=== PATIENT | male | born 1940 | race Caucasian/White ===

== ENCOUNTER 2021-05-20 10:51 | Inpatient (IN) ==
[2021-05-20] MEDS ORDERED: 0.9 % SODIUM CHLORIDE 1,000 ML IV ONE (11:01)
[2021-05-20] MEDS ORDERED: 0.9 % SODIUM CHLORIDE 250 ML IV SCH (11:15)
[2021-05-20 11:50] LABS: Basophils # (Auto) 0.05 K/mcL (0.00-0.20); Basophils % (Auto) 0.9 % (0.0-2.0); Eosinophils # (Auto) 0.07 K/mcL (0.00-0.70); Eosinophils % (Auto) 1.3 % (0.0-7.0); Hematocrit 31.1 % (41.0-55.0); Hemoglobin 9.3 g/dL (13.5-16.5); Lymphocytes # (Auto) 0.98 K/mcL (1.50-4.80); Lymphocytes % (Auto) 18.4 % (15.0-49.0); Mean Cell Volume 94.2 fL (80.0-100.0); Mean Corpuscular HGB Conc 29.9 g/dL (31.0-36.0); Mean Platelet Volume 9.6 fL (7.4-10.4); Monocytes # (Auto) 0.67 K/mcL (0.10-0.90); Monocytes % (Auto) 12.6 % (1.0-12.0); Neutrophils % (Auto) 66.8 % (38.0-78.0); Platelet Count 246 K/mcL (140-440); Red Cell Distribution Width 15.3 % (11.5-14.5); WBC 5.3 K/mcL (4.5-11.0)
[2021-05-20 12:23] LABS: ALT/SGPT 10 U/L (<40); AST/SGOT 19 U/L (<40); Albumin 3.6 gm/dL (3.2-5.2); Alkaline Phosphatase 84 U/L (39-117); Bilirubin,Total 0.2 mg/dL (0.1-1.0); Blood Urea Nitrogen 26 mg/dL (8-23); Calcium 8.8 mg/dL (8.6-10.4); Carbon Dioxide 24 mmol/L (22-30); Chloride 103 mmol/L (96-108); Globulin 3.6 gm/dL (2.2-3.7); Glomerular Filtration Rate 79; Glucose 157 mg/dL (70-105)
--- NOTE | 2021-05-20 13:25 | XRay Report ---
CLINICAL INFORMATION: History of COPD. Weakness COMPARISON: 11/20/2019 FINDINGS: Heart is mildly enlarged. The pulmonary vessels are clinically distended and there is minimal interstitial edema in both lungs. Moderate COPD noted. Minor scarring both mid and lower lungs is similar to previous study. Small bilateral pleural effusions noted. IMPRESSION: Borderline CHF. Please correlate with other supportive and serologic history Moderate COPD Interpreted and Authenticated by: Alber Hoffmann 05/20/21
--- NOTE | 2021-05-20 14:23 | Emergency Department Note ---
HPI General Chief complaint: Weakness Stated complaint: weakness Time Seen by Provider: 05/20/21 11:00 Source: patient Mode of arrival: EMS Limitations: no limitations History of Present Illness HPI Narrative: Narrative: Patient presents emergency department for evaluation of generalized he is here with his niece. He lives independently. Niece checks on him periodically reports that he has had increasing generalized weakness significantly worse over the past 3 days to the point where he is now no longer able to ambulate or transfer himself from couch to the restroom. He has been resistant to going to see the doctor and does not want to go to a care facility but today he called his niece to take him to the hospital. He has had a cough which the niece reports is productive of brownish colored sputum. Patient reported to the niece that over the past couple of days he has had some black and tarry stools. Denies pain. No other complaints. Related Data Home Medications Medication Instructions Recorded Confirmed albuterol sulfate 90 mcg/actuation See Dose Instructions INHALATION 06/15/15 06/15/15 aerosol inhaler .COMPLEX g aspirin 325 mg tablet See Dose Instructions PO .COMPLEX 06/15/15 06/15/15 tab buspirone 10 mg tablet 10 mg PO QDAY tab 06/15/15 06/15/15 diazepam 2 mg tablet 2 mg PO BID tab 06/15/15 06/15/15 docusate sodium 100 mg capsule 100 mg PO TID cap 06/15/15 06/15/15 enalapril maleate 5 mg tablet 5 mg PO QDAY tab 06/15/15 06/15/15 finasteride 5 mg tablet 5 mg PO QDAY tab 06/15/15 06/15/15 glimepiride 2 mg tablet 2 mg PO QDAY tab 06/15/15 06/15/15 lovastatin 40 mg tablet 80 mg PO QDAY tab 06/15/15 06/15/15 metformin 500 mg tablet See Dose Instructions PO .COMPLEX 06/15/15 06/15/15 tab pentosan polysulfate sodium 100 mg 100 mg PO .COMPLEX cap 06/15/15 06/15/15 capsule pioglitazone 30 mg tablet 30 mg PO QDAY tab 06/15/15 06/15/15 polyethylene glycol topical TOPICAL 06/15/15 06/15/15 tamsulosin 0.4 mg capsule 0.4 mg PO QDAY cap 06/15/15 06/15/15 terazosin 2 mg capsule See Dose Instructions PO .COMPLEX 06/15/15 06/15/15 cap theophylline 300 mg 300 mg PO BID tab 06/15/15 06/15/15 tablet,extended release,12 hr tiotropium bromide 18 mcg capsule 1 cap INHALATION QDAY puff 06/15/15 06/15/15 with inhalation device tramadol 50 mg tablet 50 mg PO QID PRN tab 06/15/15 06/15/15 Allergies Allergy/AdvReac Type Severity Reaction Status Date / Time morphine Allergy Unknown Unknown Verified 05/20/21 10:54 Review of Systems ROS ROS Narrative: Narrative: As above, all other systems reviewed and negative. [facility] Narrative Patient History Narrative: Narrative: Reviewed Medical/Surgical/Family History All Active Problems (Updated 05/20/21 @ 14:25 by Alli Narvaez MD) Dehydration (Acute) COPD exacerbation (Acute) Weakness (Acute) Hypoglycemia (Acute) Generalized weakness (Acute) History of transurethral resection of prostate (Chronic) Urinary urgency (Chronic) Hx of urinary tract infection (Chronic) Urinary stream slowing (Chronic) Abnormal urinary stream (Chronic) Urinary frequency (Chronic) Urinary incontinence, post-void dribbling (Chronic) Urethral stricture (Chronic) Nocturia (Chronic) Hypertension, essential (Chronic) Deep vein thrombosis (Chronic) Chronic obstructive pulmonary disease (Chronic) Bladder neck obstruction (Chronic) Medical History Abnormal urinary stream Bladder neck obstruction Chronic obstructive pulmonary disease Deep vein thrombosis Hx of urinary tract infection Hypertension, essential Nocturia Urethral stricture Urinary frequency Urinary incontinence, post-void dribbling Urinary stream slowing Urinary urgency Surgical History History of transurethral resection of prostate Family History Unknown Pulmonary emphysema Social History Smoking Status: Former smoker Alcohol Intake Frequency: former alcohol drinker Exam Narrative Narrative: Narrative: Vital signs: Blood pressure 140/65 pulse 67 respiration 16 satting 100% on room air. General Limitations: no limitations Head Head: Present atraumatic and normocephalic Eye Eye: Present normal appearance, PERRL and EOMI ENT ENT: Present normal exam Neck Neck: Present normal inspection; Absent meningismus Respiratory Respiratory: Absent respiratory distress Adbominal Abdominal: Present soft; Absent distention, tenderness, guarding and rebound Rectal Rectal: Present other (Rectal exam performed with COOKEE in the room, brown stool guaiac negative.) Extremities Extremities: Present normal inspection Neurological Neurological: Present alert and CN II-XII intact Psychiatric Psychiatric: Present normal affect and normal mood Skin Skin: Present warm (WNL) and dry Course Vital Signs Vital signs: Vital Signs Temperature 97.3 F 05/20/21 10:51 Pulse Rate 106 H 05/20/21 10:51 Respiratory Rate 16 05/20/21 10:51 Blood Pressure 110/45 05/20/21 10:51 Pulse Oximetry (%) 92 05/20/21 10:51 Temperature 97.3 F 05/20/21 10:51 Pulse Rate 67 05/20/21 14:01 Respiratory Rate 19 05/20/21 14:01 Blood Pressure 140/65 05/20/21 14:01 Pulse Oximetry (%) 100 05/20/21 14:01 [facility] MDM Narrative Medical decision making narrative: Narrative: Patient's hydrated IV fluids. He is here with his niece who reports that she cannot transfer him or care for him at home. I spoke with Dr. Nguyen on-call hospitalist. Case reviewed in detail over the phone. Hospitalist agreed with admission. Discussed findings with the patient and the family. Their questions were answered. They are agreeable with the plan. Lab Data Result diagrams: 05/20/21 11:06 05/20/21 11:06 Labs: Lab Results 05/20/21 05/20/21 05/20/21 Range/Units 11:06 11:06 11:06 WBC 5.3 (4.5-11.0) K/mcL RBC 3.30 L (4.50-5.90) M/mcL Hgb 9.3 L (13.5-16.5) g/dL Hct 31.1 L (41.0-55.0) % MCV 94.2 (80.0-100.0) fL MCH 28.2 (26.0-34.0) pg MCHC 29.9 L (31.0-36.0) g/dL RDW 15.3 H (11.5-14.5) % Plt Count 246 (140-440) K/mcL MPV 9.6 (7.4-10.4) fL Neut % (Auto) 66.8 (38.0-78.0) % Lymph % (Auto) 18.4 (15.0-49.0) % [place] % (Auto) 12.6 H (1.0-12.0) % Eos % (Auto) 1.3 (0.0-7.0) % Baso % (Auto) 0.9 (0.0-2.0) % Lymph # (Auto) 0.98 L (1.50-4.80) K/mcL [place] # (Auto) 0.67 (0.10-0.90) K/mcL Eos # (Auto) 0.07 (0.00-0.70) K/mcL Baso # (Auto) 0.05 (0.00-0.20) K/mcL Absolute Neutrophils 3.56 (1.80-8.00) K/mcL Sodium 138 (133-145) mmol/L Potassium 5.2 H (3.3-5.1) mmol/L Chloride 103 (96-108) mmol/L Carbon Dioxide 24 (22-30) mmol/L Anion Gap 11.0 (8.0-16.0) BUN 26 H (8-23) mg/dL Creatinine 0.9 (0.7-1.2) mg/dL GFR Calculation 79 Glucose 157 H (70-105) mg/dL Calcium 8.8 (8.6-10.4) mg/dL Total Bilirubin 0.2 (0.1-1.0) mg/dL AST 19 (<40) U/L ALT 10 (<40) U/L Alkaline Phosphatase 84 (39-117) U/L Troponin T < 0.01 (<0.03) ng/mL Total Protein 7.2 (5.9-8.4) gm/dL Albumin 3.6 (3.2-5.2) gm/dL Globulin 3.6 (2.2-3.7) gm/dL Albumin/Globulin Ratio 1.0 (1.0-2.3) ED POC Tests ED POC Tests: [place] - SARS Antigen Negative Discharge Plan Patient/Caregiver Discharge Instructions Pt seen by [employer]/PA only: No Clinical Impression: Generalized weakness Patient Disposition: Xfer As Inpt ([facility]) Follow up with: Jordon Condon MD [Primary Care Provider] - Prescriptions: No Action pentosan polysulfate sodium 100 mg capsule 100 mg PO .COMPLEX RF: 0 metformin 500 mg tablet See Dose Instructions mg PO .COMPLEX RF: 0 enalapril maleate 5 mg tablet 5 mg PO QDAY RF: 0 aspirin 325 mg tablet See Dose Instructions mg PO .COMPLEX RF: 0 lovastatin 40 mg tablet 80 mg PO QDAY RF: 0 tramadol 50 mg tablet 50 mg PO QID PRNRF: 0 glimepiride 2 mg tablet 2 mg PO QDAY RF: 0 theophylline 300 mg tablet extended release 12 hr 300 mg PO BID RF: 0 tamsulosin 0.4 mg capsule,extended release 24hr 0.4 mg PO QDAY RF: 0 diazepam 2 mg tablet 2 mg PO BID RF: 0 buspirone 10 mg tablet 10 mg PO QDAY RF: 0 docusate sodium 100 mg capsule 100 mg PO TID RF: 0 albuterol sulfate 90 mcg/actuation HFA aerosol inhaler See Dose Instructions puff INHALATION .COMPLEX RF: 0 pioglitazone 30 mg tablet 30 mg PO QDAY RF: 0 finasteride 5 mg tablet 5 mg PO QDAY RF: 0 tiotropium bromide 18 mcg capsule, w/inhalation device 1 cap INHALATION QDAY RF: 0 polyethylene glycol topical TOPICAL RF: 0 terazosin 2 mg capsule See Dose Instructions mg PO .COMPLEX RF: 0
[2021-05-20] MEDS ORDERED: IOPAMIDOL 100 ML BOTTLE IV ONE (15:31)
[2021-05-20] MEDS ORDERED: ONDANSETRON 4 MG ODT TABLET SL PRN (15:47)
[2021-05-20] MEDS ORDERED: DEXTROSE 31 GM ORAL.SUSP PO PRN (15:47)
[2021-05-20] MEDS ORDERED: DEXTROSE 50% 50 ML VIAL IV PRN (15:47)
[2021-05-20] MEDS ORDERED: ACETAMINOPHEN 325 MG TABLET PO PRN (15:47)
[2021-05-20] MEDS ORDERED: traMADol 50 MG TABLET PO PRN (16:44)
[2021-05-20] MEDS: 0.9 % SODIUM CHLORIDE 10 ML SYRINGE IV SCH ×2 (16:46→21:27)
[2021-05-20] MEDS: 0.9 % SODIUM CHLORIDE 1,000 ML IV SCH (16:46)
[2021-05-20] MEDS: INSULIN LISPRO 1 UNIT/0.01 ML UNIT SQ SCH ×2 (16:48→21:25)
--- NOTE | 2021-05-20 16:48 | Internal Med History&Physical ---
HPI History of Present Illness Patient information: Note initiated : 05/20/21 at 4:48 pm Service Date, if different from initiated Date: [] Patient: Seymour Gomez a 80 y/o M admitted on 05/20/21 for weakness. Chief Complaint: [] History of present illness: Mr. Gomez is a 80 year old M with a history of type 2 diabetes, COPD, BPH who presents to the emergency department with weakness. History is obtained in speaking to the patient, as well as with the ED physician, Dr. Narvaez. Patient states that he is lost about 40 pounds in about the last year and a half. He states he got sick with the flu at the end of September 2019 was essentially bedbound for about a month. He had poor appetite during that time. He cooks for himself and really was not eating much. Following that he never gained back weight. He became ill again with respiratory illness in 08/2020 and again had further weight loss. He now weighs 110 pounds. Since that time he is continued to have what sounds like a progressive decline in functional status. For the last 4 days he states he has been too weak to get out of bed. It sounds like he has not eaten much during those 4 days. Prior to that he was able to get up to the bathroom. He is cooks for himself, but does not have much energy to cook. This is been particularly exacerbated by hot weather. Generally has a TV dinner or soup or sandwich. He eats 1 or maybe 2 meals a day. He has a niece who checks in on him. She has had concerns with his declining health. He was seen by his PCP a couple weeks ago. On day of admission he called his niece as he is unable to get up out of bed to even trans anita to try to get to the bathroom. In the emergency department, evaluation revealed an anemia at 9.3 (12.04/17), but had brown heme-negative stool on exam. Renal function is normal at 0.9, potassium very mildly elevated 5.2. Normal liver enzymes. Chest film revealed changes consistent with COPD and some suggestion of vascular congestion. Troponin was less than 0.01. Given the patient's weakness and failure to be able to live alone, he is hospitalized observation for further evaluation. Patient occasionally feels warm and occasionally feels chilled. He does not really get shaking chills, but feels shaky when he overexerts himself. He does feel sweaty at night, is unclear in talking to him if this is secondary to the recent heat or other process. He has a chronic cough with mucousy sputum which is unchanged. He does get some chest tightness and has chronic dyspnea on exertion and uses oxygen 2 L/min at baseline. Patient reports that sometimes is hard to swallow and sometimes is painful to swallow. Nausea comes easily and he has emesis almost daily of food he is just eaten. He occasionally has diffuse abdominal pain. He has had no constipation. He is noted no blood in his emesis or in his stool. He had barium swallow in late March which showed cervical esophageal achalasia, presbyesophagus with diverticuli. There is also incomplete closure of the vocal cords and epiglottis and evidence of aspiration. Complains of a headache occasionally. No vision changes. He notes wasting away of his musculature. No joint pain or swelling. No lower extremity edema. No bruising or bleeding. No rashes. He is generally weak, no focal weaknesses no change in sensation. No dysuria, no blood in his urine. Review of Systems Review of systems: As noted above in HPI. PFSH PFSH All Active Problems (Updated 05/20/21 @ 14:25 by Alli Narvaez MD) Dehydration (Acute) COPD exacerbation (Acute) Weakness (Acute) Hypoglycemia (Acute) Generalized weakness (Acute) History of transurethral resection of prostate (Chronic) Urinary urgency (Chronic) Hx of urinary tract infection (Chronic) Urinary stream slowing (Chronic) Abnormal urinary stream (Chronic) Urinary frequency (Chronic) Urinary incontinence, post-void dribbling (Chronic) Urethral stricture (Chronic) Nocturia (Chronic) Hypertension, essential (Chronic) Deep vein thrombosis (Chronic) Chronic obstructive pulmonary disease (Chronic) Bladder neck obstruction (Chronic) Medical History Abnormal urinary stream Bladder neck obstruction Chronic obstructive pulmonary disease Deep vein thrombosis Hx of urinary tract infection Hypertension, essential Nocturia Urethral stricture Urinary frequency Urinary incontinence, post-void dribbling Urinary stream slowing Urinary urgency Surgical History History of transurethral resection of prostate Family History Unknown Pulmonary emphysema Social History (Updated 05/20/21 @ 21:23 by Yara Newsome MD) smoking status: Former smoker alcohol intake frequency: former alcohol drinker MEDS/ALLERGIES Home Medications and Allergies Home Medications Medication Instructions Recorded Confirmed Type albuterol sulfate 90 mcg/actuation See Rx Instructions .ROUTE 06/15/15 05/20/21 History aerosol inhaler .COMPLEX g buspirone 10 mg tablet 20 mg PO TID tab 06/15/15 05/20/21 History docusate sodium 100 mg capsule 100 mg PO TID cap 06/15/15 05/20/21 History finasteride 5 mg tablet 5 mg PO QDAY tab 06/15/15 05/20/21 History lovastatin 40 mg tablet 80 mg PO HS tab 06/15/15 05/20/21 History metformin 500 mg tablet 500 mg PO BID tab 06/15/15 05/20/21 History tamsulosin 0.4 mg capsule 0.4 mg PO QDAY cap 06/15/15 05/20/21 History tramadol 50 mg tablet See Rx Instructions .ROUTE 06/15/15 05/20/21 History .COMPLEX PRN tab acetaminophen See Rx Instructions .ROUTE .COMPLEX 05/20/21 05/20/21 History diazepam 5 mg PO TID 05/20/21 05/20/21 History enalapril maleate 10 mg PO QDAY 05/20/21 05/20/21 History glimepiride 4 mg PO BID 05/20/21 05/20/21 History hydroxyzine HCl 10 mg PO TID 05/20/21 05/20/21 History omeprazole 40 mg PO BID 05/20/21 05/20/21 History polyethylene glycol 3350 17 g PO QDAY 05/20/21 05/20/21 History umeclidinium-vilanterol [Anoro 1 inh INHALATION QDAY 05/20/21 05/20/21 History Ellipta] Allergies Allergy/AdvReac Type Severity Reaction Status Date / Time morphine Allergy Unknown Unknown Verified 05/20/21 10:54 EXAM Constitutional Vitals: Temp Pulse Resp BP Pulse Ox 98.9 F 82 24 H 153/74 91 05/20/21 15:51 05/20/21 15:51 05/20/21 15:51 05/20/21 15:51 05/20/21 15:51 GENERAL: Alert, oriented, frail-appearing. HEENT: Temporal wasting, pupils equal, conjunctiva clear, no scleral icterus. Hearing mildly decreased. Oropharynx with moist mucous membranes, tongue midline. NECK: Supple without meningismus, no thyromegaly RESPIRATORY: Breath sounds diminished throughout, particularly on the right lower and mid lung patel, without wheezes or rhonchi. Respiratory effort is unlabored. CARDIOVASCULAR: Regular rate and rhythm, no murmur. No peripheral edema. Carotid pulses 2+. GI: Abdomen scaphoid, soft, nontender, no guarding or rebound. Bowel sounds are present. No hepatosplenomegaly. MUSCULOSKELETAL: No joint erythema or swelling, normal range of motion in all extremities. SKIN: Intact, warm, dry. No lesions. Skin turgor decreased. NEUROLOGIC: Cranial nerves II through XII grossly intact. Muscle significantly diminished, even for age. Strength 5-/5 in the upper and lower extremities with generalized weakness. Sensation intact to light touch bilaterally. PSYCHIATRIC: Alert, oriented x3, normal mood and affect, normal insight. DATA Data Completed and Pending Labs: Labs from last 24 hours 05/20/21 05/20/21 05/20/21 11:08 11:06 11:06 WBC RBC Hgb Hct MCV MCH MCHC RDW Plt Count MPV Neut % (Auto) Lymph % (Auto) [place] % (Auto) Eos % (Auto) Baso % (Auto) Lymph # (Auto) [place] # (Auto) Eos # (Auto) Baso # (Auto) Absolute Neutrophils Sodium 138 Potassium 5.2 H Chloride 103 Carbon Dioxide 24 Anion Gap 11.0 BUN 26 H Creatinine 0.9 GFR Calculation 79 Glucose 157 H Calcium 8.8 Total Bilirubin 0.2 AST 19 ALT 10 Alkaline Phosphatase 84 Troponin T < 0.01 Total Protein 7.2 Albumin 3.6 Globulin 3.6 Albumin/Globulin Ratio 1.0 TSH Pending 05/20/21 11:06 WBC 5.3 RBC 3.30 L Hgb 9.3 L Hct 31.1 L MCV 94.2 MCH 28.2 MCHC 29.9 L RDW 15.3 H Plt Count 246 MPV 9.6 Neut % (Auto) 66.8 Lymph % (Auto) 18.4 [place] % (Auto) 12.6 H Eos % (Auto) 1.3 Baso % (Auto) 0.9 Lymph # (Auto) 0.98 L [place] # (Auto) 0.67 Eos # (Auto) 0.07 Baso # (Auto) 0.05 Absolute Neutrophils 3.56 Sodium Potassium Chloride Carbon Dioxide Anion Gap BUN Creatinine GFR Calculation Glucose Calcium Total Bilirubin AST ALT Alkaline Phosphatase Troponin T Total Protein Albumin Globulin Albumin/Globulin Ratio TSH Impressions Impressions: EKG with sinus rhythm at a rate of 91. Imaging and Cardiology Chest x-ray: Status: image reviewed by me Additional comments: Date of Service: 05/20/21 Procedure(s): XR chest 2V IMPRESSION: Borderline CHF. Please correlate with other supportive and serologic history Moderate COPD A/P Narrative A/P Narrative: 80-year-old male presents with progressive weakness, weight loss and failure to thrive. Weight loss, failure to thrive -Unclear etiology -Concern for possible underlying malignancy -Cachexia related to COPD also possible -Difficulty in cooking and providing adequate meals may be contributing -May have underlying dysphagia which also contributes -Awaiting urinanalysis to rule out infection in the urinary tract -No evidence of pneumonia Severe protein calorie malnutrition -Body mass index 18.4, but with no subcutaneous fat reserves on exam -Likely contributing to his weakness Anemia -Hemoglobin 12.0 on 02/03 of this year, now 9.3 -Brown heme-negative stool in the ED -May be related to nutritional deficiency Esophageal achalasia and presbyesophagus -At risk for aspiration per barium swallow -May also be contributing to his poor caloric intake -Would benefit from formal speech therapy evaluation Type 2 diabetes mellitus -On Metformin and glimepiride at home COPD -No PFTs available in the system -Significant COPD changes on CT -On Anoro and albuterol as needed BPH -On tamsulosin and finasteride Plan: Hospitalized in observation Hydration Check CT of the chest abdomen and pelvis to evaluate for neoplasia Check TSH Nutritional support/dietitian consult Monitor for evidence of refeeding syndrome Speech therapy evaluation Hold metformin and glimepiride, treat with sliding scale insulin Continue Anoro, as needed DuoNeb Continue finasteride and tamsulosin PT and OT evaluations to assess functional status and possible discharge needs Follow hemoglobin, though lower suspicion for GI bleed with brown heme-negative stool in the ED
[2021-05-20 18:02] LABS: Appearance,Urine CLEAR (Clear); Bilirubin,Urine Negative (Negative); Color,Urine YELLOW; Culture Indicated,Urine No; Glucose,Urine (UA) Negative (Negative); Ketones,Urine Negative (Negative); Leukocyte Esterase,Urine Negative /ug (Negative); Mucus,Urine FEW /hpf; Nitrate,Urine Negative (Negative); Protein,Urine Negative (Negative); Specific Gravity,Urine 1.013 (1.000-1.035); Urine Blood Negative (Negative); Urine RBC 1 /hpf (0-3); Urine Squamous Epithelial Cell 0 /hpf (0-4); Urine WBC < 1 /hpf (0-4); Urobilinogen,Urine Negative
--- NOTE | 2021-05-20 18:45 | Cat Scan Report ---
CLINICAL INFORMATION: Weight loss and failure to thrive COMPARISON: Abdomen and pelvic CT 10/03/2020. TECHNIQUE: Enteric contrast was utilized. 80 cc of Isovue-[id number] were injected intravenously, and 50 seconds later 2.5 mm helical slices were obtained from the lung apices through the subtrochanteric regions of the femurs. Following reconstruction, 2.5 mm sagittal, coronal and axial reformatted images were processed and reviewed at multiple windows and levels. 7 mm MIP reconstructions were obtained through the lungs to optimize nodule detection.The exam was performed using radiation dose optimization techniques including, but not limited to, automated exposure control, adjustment of the mA and/or kV according to patient size and use of iterative reconstruction technique. FINDINGS: Pulmonary parenchymal windows show moderate centrilobular emphysema featuring chronic bronchitis with elevated lung volumes wall thickening/dilatation of bronchi and scattered bullae within the upper lobes. There is also scattered scarring in the mid and lower lungs. A few small well-circumscribed nodules in both lungs are uncertain etiology and chronicity: 7 mm in the lateral basilar segment left lower lobe image 72, 3 mm in the lateral right upper lobe on image 67, 3 mm anterior segment right upper lobe on image 66 and 6.4 mm in the right middle lobe image 101. These are more likely granulomas than metastases. Mediastinal windows show the heart is moderately enlarged with heavy calcific plaque in the coronary arteries there is also moderate calcification aortic and mitral valves. The thoracic aorta is normal in diameter with scattered atherosclerotic plaque. Pulmonary arteries are normal diameter and [id number] evidence of embolus. Upper and mid esophagus is mildly dilated with narrowing in the distal thoracic esophagus there may be a stricture in this region. There is mild edema in the mesenteric fat. 2.3 cm colloid cyst seen in the right thyroid lobe Abdominal images show mild fatty change within the liver. 3-4 small cysts scattered within the liver, ranging up to 10 mm left hepatic lobe, are stable. The gallbladder and bile ducts are normal: CBD is 5 mm. A 3.8 cm cyst in the anterior spleen is stable. Both kidneys, adrenal glands are normal. Pancreatic atrophy with scattered calcifications in the pancreatic parenchyma likely represents stigmata of old pancreatitis. Change. No evidence of active pancreatic inflammation Pelvic images show prostatectomy changes. Urinary bladder is moderately distended. The stomach, small large bowel are symmetrically dilated with moderate colonic stool compatible with ileus. There is a small amount of ascites throughout the abdomen and pelvis and also moderate edema throughout the mesenteric retroperitoneal and subcutaneous fat. Findings compatible with anasarca-a new finding. There is also near absence of fat throughout the chest abdomen and pelvis. This has developed since the previous study and is compatible with chronic wasting/ malnutrition. Bone windows show no osseous abnormality throughout the chest abdomen or pelvis other than degeneration IMPRESSION: 1. Anasarca featuring mild ascites and edema throughout the mesenteric, retroperitoneal fat and subcutaneous fat. There is also edema in the mediastinal region. Differential diagnosis of anasarca includes chronic liver disease, chronic renal disease including nephrotic syndrome, anaphylaxis, malnutrition/wasting and CHF. Malnutrition is the most likely cause in this particular case. 2. Moderate centrilobular emphysema. Scattered small nodules in the mid and lower lungs are more likely granulomas than metastases. If clinically indicated, suggest follow-up chest CT in six months to reevaluate. 3. Mild cardiomegaly with heavy calcific plaque in the coronary arteries. There is also calcification in the aortic and mitral valves. 4. Scattered hepatic cysts and a 3.8 cm cyst in the anterior spleen-stable 5. Pancreatic atrophy with scattered intimal calcification compatible with prior history of pancreatitis. No evidence of active pancreatic inflammation. 6. 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
[2021-05-20] MEDS ORDERED: OMEPRAZOLE 40 MG PO SCH (21:00)
[2021-05-20] MEDS ORDERED: [UNRECOGNIZED DRUG - OTHER] PO SCH (21:00)
[2021-05-20] MEDS: DIAZEPAM 5 MG TABLET PO SCH (21:26)
[2021-05-20] MEDS: SENNOSIDES 1 TABLET PO SCH (21:26)
[2021-05-20] MEDS: busPIRone 5 MG TABLET PO SCH (21:26)
[2021-05-20] MEDS: SIMVASTATIN 40 MG TABLET PO SCH (21:26)
[2021-05-20] MEDS: DOCUSATE SODIUM 100 MG CAPSULE PO SCH (21:26)
[2021-05-20] MEDS: ONDANSETRON 4 MG/2 ML VIAL IV PRN (21:41)
[2021-05-20] MEDS: IPRATROPIUM/ALBUTEROL 3 ML AMPUL.NEB NEB PRN (22:21)
[2021-05-21] MEDS ORDERED: ACETAMINOPHEN 650 MG/65 ML BAG IV PRN (04:55)
[2021-05-21] MEDS ORDERED: ACETAMINOPHEN 1,000 MG/100 ML BAG IV ONE (05:02)
[2021-05-21] MEDS: 0.9 % SODIUM CHLORIDE 1,000 ML IV SCH ×2 (05:41→18:00)
[2021-05-21] MEDS: 0.9 % SODIUM CHLORIDE 10 ML SYRINGE IV SCH ×3 (06:03→22:03)
[2021-05-21 07:11] LABS: Basophils # (Auto) 0.04 K/mcL (0.00-0.20); Basophils % (Auto) 0.4 % (0.0-2.0); Eosinophils # (Auto) 0.02 K/mcL (0.00-0.70); Eosinophils % (Auto) 0.2 % (0.0-7.0); Hematocrit 28.6 % (41.0-55.0); Hemoglobin 8.1 g/dL (13.5-16.5); Lymphocytes # (Auto) 0.84 K/mcL (1.50-4.80); Mean Cell Volume 95.7 fL (80.0-100.0); Mean Corpuscular HGB Conc 28.3 g/dL (31.0-36.0); Mean Platelet Volume 9.8 fL (7.4-10.4); Monocytes # (Auto) 0.57 K/mcL (0.10-0.90); Monocytes % (Auto) 6.1 % (1.0-12.0); Neutrophils % (Auto) 84.3 % (38.0-78.0); Platelet Count 238 K/mcL (140-440); RBC 2.99 M/mcL (4.50-5.90); Red Cell Distribution Width 15.5 % (11.5-14.5); WBC 9.3 K/mcL (4.5-11.0)
[2021-05-21] MEDS ORDERED: PANTOPRAZOLE 40 MG TABLET PO SCH (07:30)
[2021-05-21 07:48] LABS: ALT/SGPT 9 U/L (<40); AST/SGOT 15 U/L (<40); Albumin 3.3 gm/dL (3.2-5.2); Albumin/Globulin Ratio 1.1 (1.0-2.3); Alkaline Phosphatase 76 U/L (39-117); Bilirubin,Direct < 0.2 mg/dL (0-0.3); Bilirubin,Total 0.2 mg/dL (0.1-1.0); Blood Urea Nitrogen 25 mg/dL (8-23); Calcium 8.7 mg/dL (8.6-10.4); Carbon Dioxide 27 mmol/L (22-30); Chloride 106 mmol/L (96-108); Globulin 3.1 gm/dL (2.2-3.7); Glomerular Filtration Rate 51; Glucose 41 mg/dL (70-105); Lactate Dehydrogenase 205 U/L (135-225); Phosphorous 3.6 mg/dL (2.5-4.5); Triglycerides 50 mg/dL (<150); Uric Acid 5.7 mg/dL (2.5-8.0)
[2021-05-21] MEDS: OMEPRAZOLE 20 MG CAPSULE PO SCH ×2 (07:53→16:49)
[2021-05-21] MEDS: INSULIN LISPRO 1 UNIT/0.01 ML UNIT SQ SCH ×4 (07:53→20:53)
[2021-05-21] MEDS: busPIRone 5 MG TABLET PO SCH ×3 (08:46→21:01)
[2021-05-21] MEDS: TAMSULOSIN 0.4 MG CAPSULE PO SCH (08:46)
[2021-05-21] MEDS: FINASTERIDE 5 MG TABLET PO SCH (08:46)
[2021-05-21] MEDS: LISINOPRIL 10 MG TABLET PO SCH (08:46)
[2021-05-21] MEDS: DIAZEPAM 5 MG TABLET PO SCH ×2 (08:46→16:18)
[2021-05-21] MEDS: POLYETHYLENE GLYCOL 3350 17 GM PACKET PO SCH ×2 (08:46→09:52)
[2021-05-21] MEDS: ENOXAPARIN 40 MG/0.4 ML SYRINGE SQ SCH (08:51)
[2021-05-21] MEDS: Umeclidinium-Vilanterol [Anoro Ellipta] 62.5-25 mcg Inhaler INH SCH (08:54)
[2021-05-21] MEDS: DOCUSATE SODIUM 100 MG CAPSULE PO SCH ×3 (09:51→20:49)
[2021-05-21] MEDS: IPRATROPIUM/ALBUTEROL 3 ML AMPUL.NEB NEB PRN (11:49)
--- NOTE | 2021-05-21 13:00 | EKG ---
[facility] Test Date: 2021-05-20 Pat Name: Seymour Gomez Department: [facility] Room: 108 Gender: Male [employer]: carl : 1940 Requested By: Alli Narvaez Order Number: [id number] Reading MD: Jordon Condon M.D. Measurements Intervals [place] Rate: 91 P: 82 W[place]: 162 QRS: 82 QRSD: 89 T: 61 QT: 355 QTc: 437 Interpretive Statements Sinus rhythm Borderline right axis deviation Minimal ST elevation, inferior leads NO PRIOR TRACING FOR COMPARISON otherwise normal ecg Electronically Signed On 05-21-2021 13:00:33 PDT by Jordon Condon M.D. /store/[email or web address]/[id number]
[2021-05-21] MEDS: SENNOSIDES 1 TABLET PO SCH (20:49)
[2021-05-21] MEDS: SIMVASTATIN 40 MG TABLET PO SCH (20:49)
--- NOTE | 2021-05-21 20:50 | Internal Med Progress Note ---
SUBJECTIVE Subjective Patient information: Note initiated : 05/21/21 at 8:49 pm Service Date, if different from initiated Date: [] Patient: Seymour Gomez a 80 y/o M admitted on 05/20/21 for weakness. Chief Complaint: Follow-up weakness, poor nutrition Interval history: Mr. Gomez is a 80 year old M with a history of type 2 diabetes, COPD, BPH who presents to the emergency department with weakness. History is obtained in speaking to the patient, as well as with the ED physician, Dr. Narvaez. Patient states that he is lost about 40 pounds in about the last year and a half. He states he got sick with the flu at the end of September 2019 was essentially bedbound for about a month. He had poor appetite during that time. He cooks for himself and really was not eating much. Following that he never gained back weight. He became ill again with respiratory illness in 08/2020 and again had further weight loss. He now weighs 110 pounds. Since that time he is continued to have what sounds like a progressive decline in functional status. For the last 4 days he states he has been too weak to get out of bed. It sounds like he has not eaten much during those 4 days. Prior to that he was able to get up to the bathroom. He is cooks for himself, but does not have much energy to cook. This is been particularly exacerbated by hot weather. Generally has a TV dinner or soup or sandwich. He eats 1 or maybe 2 meals a day. He has a niece who checks in on him. She has had concerns with his declining health. He was seen by his PCP a couple weeks ago. On day of admission he called his niece as he is unable to get up out of bed to even transfer to try to get to the bathroom. In the emergency department, evaluation revealed an anemia at 9.3 (12.04/17), but had brown heme-negative stool on exam. Renal function is normal at 0.9, potassium very mildly elevated 5.2. Normal liver enzymes. Chest film revealed changes consistent with COPD and some suggestion of vascular congestion. Troponin was less than 0.01. Given the patient's weakness and failure to be able to live alone, he is hospitalized observation for further evaluation. 8/2had a temperature to 101 over night, blood cultures drawn. Patient has been very sleepy today. Was not able to work with speech therapy. Was noted to possibly have aspiration yesterday evening. Home meds reordered, which included 3 times a day Valium. Patient was vague on how he been taking his meds yesterday when I admitted him. Very difficult to arouse and unable to provide history today. Pertinent ROS: Unable, due to mental status Constitutional Vitals: Vital Signs Temp Pulse Resp BP Pulse Ox 98.4 F 59 L 24 H 148/58 100 05/21/21 18:32 05/21/21 18:32 05/21/21 18:32 05/21/21 18:32 05/21/21 18:32 Period Temp Pulse Resp BP Sys/Pérez Pulse Ox Last 24 Hr 98.1 F-101.0 F 59-106 22-38 105-148/47-64 86-100 Intake and Output 05/21/21 05/21/21 05/21/21 05:59 13:59 21:59 Intake Total 1204 480 924 Output Total 750 325 1 Balance 454 155 923 Weight 114 lb 1.6 oz Patient Weight 05/22/21 05:59 Weight 114 lb 1.6 oz GENERAL: In bed, very difficult to arouse RESPIRATORY: Respirations unlabored, clear anterior/laterally CARDIOVASCULAR: Regular ABDOMEN: Scaphoid, active bowel sounds EXTREMITIES: No edema NEURO: Very sleepy Intake & Output: Intake & Output 05/21/21 05/21/21 05/21/21 05:59 13:59 21:59 Intake Total 1204 480 924 Output Total 750 325 1 Balance 454 155 923 Weight 114 lb 1.6 oz Intake: IV 1034 924 Sodium Chloride 0.9% 1,000 ml @ 969 924 75 mls/hr IV .[id number] JAMES Rx#: [id number] Oral 170 480 Output: Void Amount 750 325 # of times incontinent of urine 1 Other: Meal Lunch Percent of Meal Consumed 100% Feeding Ability Independent Urine Appearance Clear Clear Urine Color Bright Yellow Dark Yellow Urine Odor Normal Stool Size Large Large Stool Color Brown Brown Stool Consistency Soft Formed # Voids 1 # Bowel Movements 1 1 OBJ DATA Labs CBC & Chem 7: 05/21/21 05:35 05/21/21 05:35 Labs: Abnormal Lab Results 05/21/21 05/21/21 05/20/21 05:35 05:35 16:08 RBC 2.99 L Hgb 8.1 L Hct 28.6 L MCHC 28.3 L RDW 15.5 H Neut % (Auto) 84.3 H Lymph % (Auto) 9.0 L [place] % (Auto) Lymph # (Auto) 0.84 L Potassium Anion Gap 6.0 L BUN 25 H Creatinine 1.3 H Glucose 41 L Urine Mucus Few A 05/20/21 05/20/21 11:06 11:06 RBC 3.30 L Hgb 9.3 L Hct 31.1 L MCHC 29.9 L RDW 15.3 H Neut % (Auto) Lymph % (Auto) [place] % (Auto) 12.6 H Lymph # (Auto) 0.98 L Potassium 5.2 H Anion Gap BUN 26 H Creatinine Glucose 157 H Urine Mucus Meds: Medications Acetaminophen (Acetaminophen 325 Mg Tablet) 650 mg PO Q6HP PRN; Protocol PRN Reason: Per Pain Protocol/Fever > 101 Last Admin: 05/20/21 19:21 Dose: 650 mg Documented by: Albuterol/Ipratropium (Ipratropium/Albuterol 3 Ml Ampul.Neb) 3 ml NEB Q6HP PRN PRN Reason: Wheezing Last Admin: 05/21/21 11:49 Dose: 3 ml Documented by: Buspirone HCl (Buspirone 5 Mg Tablet) 20 mg PO TID PENDING [facility] TO [facility] Last Admin: 05/21/21 16:18 Dose: Not Given Documented by: Dextrose (Dextrose 50% 50 Ml Vial) 0 ml IV UD PRN PRN Reason: Hypoglycemia Diagnostic Test (Pha) (Accu-Chek 1 Each Strip) 1 each FS ACHS [facility] Last Admin: 05/21/21 16:45 Dose: 1 each Documented by: Docusate Sodium (Docusate Sodium 100 Mg Capsule) 100 mg PO TID [facility] Last Admin: 05/21/21 14:21 Dose: Not Given Documented by: Enoxaparin Sodium (Enoxaparin 40 Mg/0.4 Ml Syringe) 40 mg SQ DAILY [facility] Last Admin: 05/21/21 08:51 Dose: 40 mg Documented by: Finasteride (Finasteride 5 Mg Tablet) 5 mg PO QDAY [facility] Last Admin: 05/21/21 08:46 Dose: 5 mg Documented by: Glucose (Dextrose 31 Gm Oral.Susp) 15 gm PO PRN PRN PRN Reason: Hypoglycemia Sodium Chloride (Sodium Chloride 0.9%) 1,000 mls @ 75 mls/hr IV .[id number] [facility] Last Admin: 05/21/21 18:00 Dose: 75 mls/hr Documented by: Acetaminophen (Ofirmev) 650 mg in 65 mls @ 130 mls/hr IV Q6HP PRN; Protocol PRN Reason: PAIN/FEVER > 101 Last Infusion: 05/21/21 05:33 Dose: Infused Documented by: Insulin Human Lispro (Insulin Lispro 1 Unit/0.01 Ml Unit) 0 unit SQ [facility]; Protocol Last Admin: 05/21/21 16:46 Dose: Not Given Documented by: Lisinopril (Lisinopril 10 Mg Tablet) 10 mg PO DAILY [facility] Last Admin: 05/21/21 08:46 Dose: 10 mg Documented by: Omeprazole (Omeprazole 20 Mg Capsule) 40 mg PO BIDAC [facility] Last Admin: 05/21/21 16:49 Dose: 40 mg Documented by: Ondansetron HCl (Ondansetron 4 Mg/2 Ml Vial) 4 mg IV Q6HP PRN PRN Reason: Nausea And Vomiting Last Admin: 05/20/21 21:41 Dose: 4 mg Documented by: Ondansetron HCl (Ondansetron 4 Mg Odt Tablet) 4 mg SL Q6HP PRN PRN Reason: Nausea And Vomiting Umeclidinium- Vilanterol [Anoro Ellipta] 62.5-25 Mcg Inhaler 1 dose INH QDAY [facility] Last Admin: 05/21/21 08:54 Dose: Not Given Documented by: Polyethylene Glycol (Polyethylene Glycol 3350 17 Gm Packet) 17 gm PO QDAY [facility] Last Admin: 05/21/21 09:52 Dose: Not Given Documented by: Senna (Sennosides 1 Tablet) [address] [facility] Last Admin: 05/20/21 21:26 Dose: 2 tab Documented by: Simvastatin (Simvastatin 40 Mg Tablet) [address] [facility] Last Admin: 05/20/21 21:26 Dose: 40 mg Documented by: Sodium Chloride (0.9 % Sodium Chloride 10 Ml Syringe) 10 ml IV Q8 [facility] Last Admin: 05/21/21 14:58 Dose: Not Given Documented by: Tamsulosin HCl (Tamsulosin 0.4 Mg Capsule) 0.4 mg PO QDAY [facility] Last Admin: 05/21/21 08:46 Dose: 0.4 mg Documented by: Tramadol HCl (Tramadol 50 Mg Tablet) 50 mg PO Q4-6HP PRN; Protocol PRN Reason: Pain Impressions Impression: Date of Service: 05/20/21images are personally reviewed and the results are discussed with the reading radiologist at the time of interpretati on. Procedure(s): CT chest abdomen pelvis w con CLINICAL INFORMATION: Weight loss and failure to thrive COMPARISON: Abdomen and pelvic CT 10/03/2020. IMPRESSION: 1. Anasarca featuring mild ascites and edema throughout the mesenteric, retroperitoneal fat and subcutaneous fat. There is also edema in the mediastinal region. Differential diagnosis of anasarca includes chronic liver disease, chronic renal disease including nephrotic syndrome, anaphylaxis, malnutrition/wasting and CHF. Malnutrition is the most likely cause in this particular case. 2. Moderate centrilobular emphysema. Scattered small nodules in the mid and lower lungs are more likely granulomas than metastases. If clinically indicated, suggest follow-up chest CT in six months to reevaluate. 3. Mild cardiomegaly with heavy calcific plaque in the coronary arteries. There is also calcification in the aortic and mitral valves. 4. Scattered hepatic cysts and a 3.8 cm cyst in the anterior spleen-stable 5. Pancreatic atrophy with scattered intimal calcification compatible with prior history of pancreatitis. No evidence of active pancreatic inflammation. 6. 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 Weight loss, failure to thrive -Unclear etiology -Concern for possible underlying malignancy -CT of chest abdomen pelvis with marked paucity of subcutaneous adipose tissue, though no masses or other worrying findings for malignancy -Cachexia related to COPD also possible -Difficulty in cooking and providing adequate meals may be contributing -May have underlying dysphagia which also contributes -No evidence of pneumonia on chest x-ray or CT Fever -Temperature to 101 overnight -No white count on labs -No other source noted -Query episode of microaspiration -Tumor fever also possible given cachexia, though nothing revealing noted on CT of chest abdomen pelvis Severe protein calorie malnutrition -Body mass index 18.4, but with no subcutaneous fat reserves on exam -Likely contributing to his weakness Anemia -Hemoglobin 12.0 on 02/03 of this year, now 9.3 -Fell to 8.1 with hydration 05/21 -No evidence of GI blood loss -Brown heme-negative stool in the ED -May be related to nutritional deficiency Esophageal achalasia and presbyesophagus -At risk for aspiration per barium swallow -May also be contributing to his poor caloric intake -Would benefit from formal speech therapy evaluation Type 2 diabetes mellitus -On Metformin and glimepiride at home COPD -No PFTs available in the system -Significant COPD changes on CT -On Anoro and albuterol as needed BPH -On tamsulosin and finasteride Plan: Inpatient status from admission, after UR assessment Continue with hydration Discontinue diazepam Monitor level of consciousness and mental status Follow-up blood cultures If further fever, consider reimaging (though initial x-ray and CT chest before fever were negative) Continue nutritional support/dietitian consult Continue to monitor for evidence of refeeding syndrome Speech therapy evaluation Continue to hold metformin and glimepiride, treat with sliding scale insulin Continue Anoro, as needed DuoNeb Continue finasteride and tamsulosin Continue with PT and OT evaluations to assess functional status and possible discharge needs Continue to follow hemoglobin, though there remains a lower suspicion for GI bleed with brown heme-negative stool in the ED Check iron studies and B12/folate QUALITY VTE Deep Vein Thrombosis/Pulmonary Embolism Present on Admission: No
[2021-05-22] MEDS: 0.9 % SODIUM CHLORIDE 10 ML SYRINGE IV SCH ×2 (06:18→13:03)
[2021-05-22 06:47] LABS: Basophils # (Auto) 0.04 K/mcL (0.00-0.20); Basophils % (Auto) 0.9 % (0.0-2.0); Eosinophils # (Auto) 0.06 K/mcL (0.00-0.70); Eosinophils % (Auto) 1.4 % (0.0-7.0); Hematocrit 25.8 % (41.0-55.0); Hemoglobin 7.6 g/dL (13.5-16.5); Lymphocytes # (Auto) 0.87 K/mcL (1.50-4.80); Lymphocytes % (Auto) 20.2 % (15.0-49.0); Mean Cell Volume 93.8 fL (80.0-100.0); Mean Corpuscular HGB Conc 29.5 g/dL (31.0-36.0); Mean Platelet Volume 9.8 fL (7.4-10.4); Monocytes # (Auto) 0.52 K/mcL (0.10-0.90); Monocytes % (Auto) 12.1 % (1.0-12.0); Neutrophils % (Auto) 65.4 % (38.0-78.0); Platelet Count 199 K/mcL (140-440); RBC 2.75 M/mcL (4.50-5.90); Red Cell Distribution Width 15.5 % (11.5-14.5); WBC 4.3 K/mcL (4.5-11.0)
[2021-05-22 07:14] LABS: Albumin 2.8 gm/dL (3.2-5.2); Blood Urea Nitrogen 25 mg/dL (8-23); Calcium 8.4 mg/dL (8.6-10.4); Carbon Dioxide 27 mmol/L (22-30); Chloride 109 mmol/L (96-108); Glomerular Filtration Rate 79; Glucose 92 mg/dL (70-105)
[2021-05-22] MEDS: OMEPRAZOLE 20 MG CAPSULE PO SCH ×2 (07:16→16:39)
[2021-05-22] MEDS: 0.9 % SODIUM CHLORIDE 1,000 ML IV SCH (07:16)
[2021-05-22] MEDS: INSULIN LISPRO 1 UNIT/0.01 ML UNIT SQ SCH ×4 (07:17→21:16)
[2021-05-22] MEDS: TAMSULOSIN 0.4 MG CAPSULE PO SCH (07:59)
[2021-05-22] MEDS: POLYETHYLENE GLYCOL 3350 17 GM PACKET PO SCH (07:59)
[2021-05-22] MEDS: ENOXAPARIN 40 MG/0.4 ML SYRINGE SQ SCH (08:00)
[2021-05-22] MEDS: Umeclidinium-Vilanterol [Anoro Ellipta] 62.5-25 mcg Inhaler INH SCH (08:00)
[2021-05-22] MEDS: FINASTERIDE 5 MG TABLET PO SCH (08:00)
[2021-05-22] MEDS: LISINOPRIL 10 MG TABLET PO SCH (08:00)
[2021-05-22] MEDS: DOCUSATE SODIUM 100 MG CAPSULE PO SCH ×3 (08:09→21:16)
[2021-05-22 09:11] LABS: Iron 61 ug/dL (61-157); TIBC Calculation 145 ug/dl (228-428); Transferrin % Saturation 42 % (20-50)
[2021-05-22 09:25] LABS: Ferritin 233.7 ng/mL (30.0-400.0)
--- NOTE | 2021-05-22 12:03 | Internal Med Progress Note ---
SUBJECTIVE Subjective Patient information: Note initiated : 05/22/21 at 11:59 am Service Date, if different from initiated Date: [] Patient: Seymour Gomez a 80 y/o M admitted on 05/20/21 for weakness. Chief Complaint: f/u weakness Interval history: Mr. Gomez is a 80 year old M with a history of type 2 diabetes, COPD, BPH who presents to the emergency department with weakness. History is obtained in speaking to the patient, as well as with the ED physician, Dr. Narvaez. Patient states that he is lost about 40 pounds in about the last year and a half. He states he got sick with the flu at the end of September 2019 was essentially bedbound for about a month. He had poor appetite during that time. He cooks for himself and really was not eating much. Following that he never gained back weight. He became ill again with respiratory illness in 08/2020 and again had further weight loss. He now weighs 110 pounds. Since that time he is continued to have what sounds like a progressive decline in functional status. For the last 4 days he states he has been too weak to get out of bed. It sounds like he has not eaten much during those 4 days. Prior to that he was able to get up to the bathroom. He is cooks for himself, but does not have much energy to cook. This is been particularly exacerbated by hot weather. Generally has a TV dinner or soup or sandwich. He eats 1 or maybe 2 meals a day. He has a niece who checks in on him. She has had concerns with his declining health. He was seen by his PCP a couple weeks ago. On day of admission he called his niece as he is unable to get up out of bed to even transfer to try to get to the bathroom. In the emergency department, evaluation revealed an anemia at 9.3 (12.04/17), but had brown heme-negative stool on exam. Renal function is normal at 0.9, potassium very mildly elevated 5.2. Normal liver enzymes. Chest film revealed changes consistent with COPD and some suggestion of vascular congestion. Troponin was less than 0.01. Given the patient's weakness and failure to be able to live alone, he is hospitalized observation for further evaluation. 8/2had a temperature to 101 over night, blood cultures drawn. Patient has been very sleepy today. Was not able to work with speech therapy. Was noted to possibly have aspiration yesterday evening. Home meds reordered, which included 3 times a day Valium. Patient was vague on how he been taking his meds yesterday when I admitted him. Very difficult to arouse and unable to provide history today. 8/3patient is up sitting in chair, eating breakfast. Much more alert today. Still quite weak. Provides history that he was using one half of a diazepam daily, (prescription was 10 mg 3 times daily), though had used a whole tablet for the few days leading up to his hospitalization. Only takes 1 buspirone per day, not 3. Awaiting formal speech therapy evaluation. Pertinent ROS: Complains of his stomach being "upset", but denies specific nausea or pain. Still weak, still short of breath. Constitutional Vitals: Vital Signs Temp Pulse Resp BP Pulse Ox 98.7 F 63 24 H 132/67 98 05/22/21 08:00 05/22/21 08:00 05/22/21 08:00 05/22/21 08:00 05/22/21 08:00 Period Temp Pulse Resp BP Sys/Pérez Pulse Ox Last 24 Hr 97.8 F-99.4 F 59-68 22-38 118-154/57-67 96-100 Intake and Output 05/21/21 05/22/21 05/22/21 21:59 05:59 13:59 Intake Total 924 180 995 Output Total 1 1050 Balance 923 -870 995 Weight 116 lb GENERAL: Sitting up in bed, having breakfast, chronically ill-appearing RESPIRATORY: Diminished breath sounds bilaterally, no wheezes, no rhonchi CARDIOVASCULAR: Regular rate and rhythm ABDOMEN: Scaphoid, nontender EXTREMITIES: No edema NEURO: Alert, significant generalized weakness Intake & Output: Intake & Output 05/21/21 05/22/21 05/22/21 21:59 05:59 13:59 Intake Total 924 180 995 Output Total 1 1050 Balance 923 -870 995 Weight 116 lb Intake: IV 924 995 Sodium Chloride 0.9% 1,000 ml @ 924 995 75 mls/hr IV .[id number] [facility] Rx#: [id number] Oral 180 Output: Void Amount 1050 # of times incontinent of urine 1 Other: Urine Color Dark Yellow Stool Size Large Stool Color Brown Stool Consistency Formed # Voids 1 # Bowel Movements 1 OBJ DATA Labs CBC & Chem 7: 05/22/21 05:27 05/22/21 05:27 Labs: Abnormal Lab Results 05/22/21 05/22/21 05/22/21 07:40 07:40 05:27 WBC RBC Hgb Hct MCHC RDW Neut % (Auto) Lymph % (Auto) [place] % (Auto) Lymph # (Auto) Potassium Chloride 109 H Anion Gap 6.0 L BUN 25 H Creatinine Glucose Calcium 8.4 L TIBC 145 L Unsat Iron Binding 84 L Albumin 2.8 L Vitamin B12 1915.0 H Folate > 20.0 H Urine Mucus 05/22/21 05/21/21 05/21/21 05:27 05:35 05:35 WBC 4.3 L RBC 2.75 L 2.99 L Hgb 7.6 L 8.1 L Hct 25.8 L 28.6 L MCHC 29.5 L 28.3 L RDW 15.5 H 15.5 H Neut % (Auto) 84.3 H Lymph % (Auto) 9.0 L [place] % (Auto) 12.1 H Lymph # (Auto) 0.87 L 0.84 L Potassium Chloride Anion Gap 6.0 L BUN 25 H Creatinine 1.3 H Glucose 41 L Calcium TIBC Unsat Iron Binding Albumin Vitamin B12 Folate Urine Mucus 05/20/21 05/20/21 05/20/21 16:08 11:06 11:06 WBC RBC 3.30 L Hgb 9.3 L Hct 31.1 L MCHC 29.9 L RDW 15.3 H Neut % (Auto) Lymph % (Auto) [place] % (Auto) 12.6 H Lymph # (Auto) 0.98 L Potassium 5.2 H Chloride Anion Gap BUN 26 H Creatinine Glucose 157 H Calcium TIBC Unsat Iron Binding Albumin Vitamin B12 Folate Urine Mucus Few A Meds: Medications Acetaminophen (Acetaminophen 325 Mg Tablet) 650 mg PO Q6HP PRN; Protocol PRN Reason: Per Pain Protocol/Fever > 101 Last Admin: 05/20/21 19:21 Dose: 650 mg Documented by: Albuterol/Ipratropium (Ipratropium/Albuterol 3 Ml Ampul.Neb) 3 ml NEB Q6HP PRN PRN Reason: Wheezing Last Admin: 05/21/21 11:49 Dose: 3 ml Documented by: Buspirone HCl (Buspirone 5 Mg Tablet) 20 mg PO HS [facility] Dextrose (Dextrose 50% 50 Ml Vial) 0 ml IV UD PRN PRN Reason: Hypoglycemia Diagnostic Test (Pha) (Accu-Chek 1 Each Strip) 1 each FS [facility] Last Admin: 05/22/21 07:16 Dose: 1 each Documented by: Docusate Sodium (Docusate Sodium 100 Mg Capsule) 100 mg PO TID [facility] Last Admin: 05/22/21 08:09 Dose: Not Given Documented by: Enoxaparin Sodium (Enoxaparin 40 Mg/0.4 Ml Syringe) 40 mg SQ DAILY [facility] Last Admin: 05/22/21 08:00 Dose: 40 mg Documented by: Finasteride (Finasteride 5 Mg Tablet) 5 mg PO QDAY [facility] Last Admin: 05/22/21 08:00 Dose: 5 mg Documented by: Glucose (Dextrose 31 Gm Oral.Susp) 15 gm PO PRN PRN PRN Reason: Hypoglycemia Sodium Chloride (Sodium Chloride 0.9%) 1,000 mls @ 75 mls/hr IV .[id number] [facility] Last Admin: 05/22/21 07:16 Dose: 75 mls/hr Documented by: Acetaminophen (Ofirmev) 650 mg in 65 mls @ 130 mls/hr IV Q6HP PRN; Protocol PRN Reason: PAIN/FEVER > 101 Last Infusion: 05/21/21 05:33 Dose: Infused Documented by: Insulin Human Lispro (Insulin Lispro 1 Unit/0.01 Ml Unit) 0 unit SQ [facility]; Protocol Last Admin: 05/22/21 07:17 Dose: Not Given Documented by: Lisinopril (Lisinopril 10 Mg Tablet) 10 mg PO DAILY [facility] Last Admin: 05/22/21 08:00 Dose: 10 mg Documented by: Mirtazapine (Mirtazapine 15 Mg Tablet) 15 mg PO HS [facility] Omeprazole (Omeprazole 20 Mg Capsule) 40 mg PO BIDAC [facility] Last Admin: 05/22/21 07:16 Dose: 40 mg Documented by: Ondansetron HCl (Ondansetron 4 Mg/2 Ml Vial) 4 mg IV Q6HP PRN PRN Reason: Nausea And Vomiting Last Admin: 05/20/21 21:41 Dose: 4 mg Documented by: Ondansetron HCl (Ondansetron 4 Mg Odt Tablet) 4 mg SL Q6HP PRN PRN Reason: Nausea And Vomiting Umeclidinium- Vilanterol [Anoro Ellipta] 62.5-25 Mcg Inhaler 1 dose INH QDAY [facility] Last Admin: 05/22/21 08:00 Dose: Not Given Documented by: Polyethylene Glycol (Polyethylene Glycol 3350 17 Gm Packet) 17 gm PO QDAY [facility] Last Admin: 05/22/21 07:59 Dose: 17 gm Documented by: Senna (Sennosides 1 Tablet) 2 tab PO [facility] Last Admin: 05/21/21 20:49 Dose: 2 tab Documented by: Simvastatin (Simvastatin 40 Mg Tablet) 40 mg PO [facility] Last Admin: 05/21/21 20:49 Dose: 40 mg Documented by: Sodium Chloride (0.9 % Sodium Chloride 10 Ml Syringe) 10 ml IV Q8 [facility] Last Admin: 05/22/21 06:18 Dose: Not Given Documented by: Tamsulosin HCl (Tamsulosin 0.4 Mg Capsule) 0.4 mg PO QDAY [facility] Last Admin: 05/22/21 07:59 Dose: 0.4 mg Documented by: Tramadol HCl (Tramadol 50 Mg Tablet) 50 mg PO Q4-6HP PRN; Protocol PRN Reason: Pain A/P Narrative A/P Narrative: 80-year-old male presents with progressive weakness, weight loss and failure to thrive. Weight loss, failure to thrive -Unclear etiology -Concern for possible underlying malignancy -CT of chest abdomen pelvis with marked paucity of subcutaneous adipose tissue, though no masses or other worrying findings for malignancy -Cachexia related to COPD also possible -Difficulty in cooking and providing adequate meals may be contributing -May have underlying dysphagia which also contributes -No evidence of pneumonia on chest x-ray or CT Fever -Temperature to 101 overnight -No white count on labs -No other source noted -Query episode of microaspiration -Tumor fever also possible given cachexia, though nothing revealing noted on CT of chest abdomen pelvis Severe protein calorie malnutrition -Body mass index 18.4, but with no subcutaneous fat reserves on exam -Likely contributing to his weakness Anemia -Hemoglobin 12.0 on 02/03 of this year, now 9.3 -Fell to 8.1 with hydration 05/21, to 7.6 on 05/22 -No evidence of GI blood loss -Brown heme-negative stool in the ED -May be related to nutritional deficiency -Generally normal iron stores, B12 and folate Esophageal achalasia and presbyesophagus -At risk for aspiration per barium swallow -May also be contributing to his poor caloric intake -Would benefit from formal speech therapy evaluation Type 2 diabetes mellitus -On Metformin and glimepiride at home COPD -No PFTs available in the system -Significant COPD changes on CT -On Anoro and albuterol as needed BPH -On tamsulosin and finasteride Plan: Continue with hydration Discontinued diazepam Follow-up blood cultures If further fever, consider reimaging (though initial x-ray and CT chest before fever were negative) Continue nutritional support/dietitian consult Continue to monitor for evidence of refeeding syndrome Speech therapy evaluation Continue to hold metformin and glimepiride, treat with sliding scale insulin Continue Anoro, as needed DuoNeb Continue finasteride and tamsulosin Continue with PT and OT evaluations to assess functional status and possible discharge needs Continue to follow hemoglobin, though there remains a lower suspicion for GI bleed with brown heme-negative stool in the ED May require transfusion if continued to fall Time Spent With Patient Time: Total time spent is greater than 50% in coordination of care (as documented) at patient's floor/unit and/or counseling patient: QUALITY VTE Deep Vein Thrombosis/Pulmonary Embolism Present on Admission: No
--- NOTE | 2021-05-22 13:30 | Internal Med Progress Note ---
SUBJECTIVE Subjective Patient information: Note initiated : 05/22/21 at 1:24 pm Service Date, if different from initiated Date: [] Patient: Seymour Gomez 80 y/o M admitted on 05/20/21 for weakness. Chief Complaint: [] Interval history: Mr. Gomez is a 80 year old M with a history of type 2 diabetes, COPD, BPH who presents to the emergency department with weakness. History is obtained in speaking to the patient, as well as with the ED phys Dr. Solange charles. Patient states that he is lost about 40 pounds in about the last year and a uriah f. He states he got sick with the flu at the end of September 2019 was essentially bedbound for about a month. He had poor appetite during that time. He cooks for himself and really was not eating much. Following that he never gained back weight. He became ill again with respiratory illness in 08/2020 and again had further weight loss. He now weighs 110 pounds. Since that time he is continued to have what sounds like a progressive decline in functional status. For the last 4 days he states he has been too weak to get out of bed. It sounds like he has not eaten much during those 4 days. Prior to that he was able to get up to the bathroom. He is cooks for himself, but does not have much energy to cook. This is been particularly exacerbated by hot weather. Generally has a TV dinner or soup or sandwich. He eats 1 or maybe 2 meals a day. He has a niece who checks in on him. She has had concerns with his declining health. He was seen by his PCP a couple weeks ago. On day of admission he called his niece as he is unable to get up out of bed to even transfer to try to get to the bathroom. In the emergency department, evaluation revealed an anemia at 9.3 (12.04/17), but had brown heme-negative stool on exam. Renal function is normal at 0.9, potassium very mildly elevated 5.2. Normal liver enzymes. Chest film revealed changes consistent with COPD and some suggestion of vascular congestion. Troponin was less than 0.01. Given the patient's weakness and failure to be able to live alone, he is hospitalized observation for further evaluation. 8/2had a temperature to 101 over night, blood cultures drawn. Patient has been very sleepy today. Was not able to work with speech therapy. Was noted to possibly have aspiration yesterday evening. Home meds reordered, which included 3 times a day Valium. Patient was vague on how he been taking his meds yesterday when I admitted him. Very difficult to arouse and unable to provide history today. 81patient is up sitting in chair, eating breakfast. Much more alert today. Still quite weak. Provides history that he was using one half of a diazepam daily, (prescription was 10 mg 3 times daily), though had used a whole tablet for the few days leading up to his hospitalization. Only takes 1 buspirone per day, not 3. Awaiting formal speech therapy evaluation. 05/23 Constitutional Vitals: Vital Signs Temp Pulse Resp BP Pulse Ox 98.5 F 64 26 H 132/67 98 05/22/21 12:00 05/22/21 12:00 05/22/21 12:00 05/22/21 08:00 05/22/21 08:00 Period Temp Pulse Resp BP Sys/Pérez Pulse Ox Last 24 Hr 97.8 F-98.7 F 59-64 22-26 128-154/58-67 96-100 Intake and Output 05/21/21 05/22/21 05/22/21 21:59 05:59 13:59 Intake Total 924 180 995 Output Total 1 1050 Balance 923 -870 995 Weight 52.617 kg Intake & Output: Intake & Output 05/21/21 05/22/21 05/22/21 21:59 05:59 13:59 Intake Total 924 180 995 Output Total 1 1050 Balance 923 -870 995 Weight 52.617 kg Intake: IV 924 995 Sodium Chloride 0.9% 1,000 ml @ 924 995 75 mls/hr IV .[id number] JAMES Rx#: [id number] Oral 180 Output: Void Amount 1050 # of times incontinent of urine 1 Other: Urine Color Dark Yellow Stool Size Large Stool Color Brown Stool Consistency Formed # Voids 1 # Bowel Movements 1 Exam: General: Alert, Awake, No acute Distress, cachectic Eyes/N/T: EOMI, Head/Neck: neck supple, CV: RRR, No murmurs, Pulm: Diminished b/l, no wheezing/rhonchi/rales Abd: soft, nontender, +BS x4 Ext: no clubbing/cyanosis/edema Neuro: Alert, no focal deficits, moves all extremities, Skin: warm/dry OBJ DATA Labs CBC & Chem 7: 05/22/21 05:27 05/22/21 05:27 Labs: Abnormal Lab Results 05/22/21 05/22/21 05/22/21 07:40 07:40 05:27 WBC RBC Hgb Hct MCHC RDW Neut % (Auto) Lymph % (Auto) [place] % (Auto) Lymph # (Auto) Potassium Chloride 109 H Anion Gap 6.0 L BUN 25 H Creatinine Glucose Calcium 8.4 L TIBC 145 L Unsat Iron Binding 84 L Albumin 2.8 L Vitamin B12 1915.0 H Folate > 20.0 H Urine Mucus 05/22/21 05/21/21 05/21/21 05:27 05:35 05:35 WBC 4.3 L RBC 2.75 L 2.99 L Hgb 7.6 L 8.1 L Hct 25.8 L 28.6 L MCHC 29.5 L 28.3 L RDW 15.5 H 15.5 H Neut % (Auto) 84.3 H Lymph % (Auto) 9.0 L [place] % (Auto) 12.1 H Lymph # (Auto) 0.87 L 0.84 L Potassium Chloride Anion Gap 6.0 L BUN 25 H Creatinine 1.3 H Glucose 41 L Calcium TIBC Unsat Iron Binding Albumin Vitamin B12 Folate Urine Mucus 05/20/21 05/20/21 05/20/21 16:08 11:06 11:06 WBC RBC 3.30 L Hgb 9.3 L Hct 31.1 L MCHC 29.9 L RDW 15.3 H Neut % (Auto) Lymph % (Auto) [place] % (Auto) 12.6 H Lymph # (Auto) 0.98 L Potassium 5.2 H Chloride Anion Gap BUN 26 H Creatinine Glucose 157 H Calcium TIBC Unsat Iron Binding Albumin Vitamin B12 Folate Urine Mucus Few A Meds: Medications Acetaminophen (Acetaminophen 325 Mg Tablet) 650 mg PO Q6HP PRN; Protocol PRN Reason: Per Pain Protocol/Fever > 101 Last Admin: 05/20/21 19:21 Dose: 650 mg Documented by: Albuterol/Ipratropium (Ipratropium/Albuterol 3 Ml Ampul.Neb) 3 ml NEB Q6HP PRN PRN Reason: Wheezing Last Admin: 05/21/21 11:49 Dose: 3 ml Documented by: Buspirone HCl (Buspirone 5 Mg Tablet) 20 mg PO HS [facility] Dextrose (Dextrose 50% 50 Ml Vial) 0 ml IV UD PRN PRN Reason: Hypoglycemia Diagnostic Test (Pha) (Accu-Chek 1 Each Strip) 1 each FS ACHS [facility] Last Admin: 05/22/21 12:18 Dose: 1 each Documented by: Docusate Sodium (Docusate Sodium 100 Mg Capsule) 100 mg PO TID [facility] Last Admin: 05/22/21 08:09 Dose: Not Given Documented by: Enoxaparin Sodium (Enoxaparin 40 Mg/0.4 Ml Syringe) 40 mg SQ DAILY [facility] Last Admin: 05/22/21 08:00 Dose: 40 mg Documented by: Finasteride (Finasteride 5 Mg Tablet) 5 mg PO QDAY [facility] Last Admin: 05/22/21 08:00 Dose: 5 mg Documented by: Glucose (Dextrose 31 Gm Oral.Susp) 15 gm PO PRN PRN PRN Reason: Hypoglycemia Sodium Chloride (Sodium Chloride 0.9%) 1,000 mls @ 75 mls/hr IV .[id number] [facility] Last Admin: 05/22/21 07:16 Dose: 75 mls/hr Documented by: Acetaminophen (Ofirmev) 650 mg in 65 mls @ 130 mls/hr IV Q6HP PRN; Protocol PRN Reason: PAIN/FEVER > 101 Last Infusion: 05/21/21 05:33 Dose: Infused Documented by: Insulin Human Lispro (Insulin Lispro 1 Unit/0.01 Ml Unit) 0 unit SQ [facility]; Protocol Last Admin: 05/22/21 12:18 Dose: 3 units Documented by: Lisinopril (Lisinopril 10 Mg Tablet) 10 mg PO DAILY [facility] Last Admin: 05/22/21 08:00 Dose: 10 mg Documented by: Mirtazapine (Mirtazapine 15 Mg Tablet) 15 mg PO HS JAMES Omeprazole (Omeprazole 20 Mg Capsule) 40 mg PO BIDAC [facility] Last Admin: 05/22/21 07:16 Dose: 40 mg Documented by: Ondansetron HCl (Ondansetron 4 Mg/2 Ml Vial) 4 mg IV Q6HP PRN PRN Reason: Nausea And Vomiting Last Admin: 05/20/21 21:41 Dose: 4 mg Documented by: Ondansetron HCl (Ondansetron 4 Mg Odt Tablet) 4 mg SL Q6HP PRN PRN Reason: Nausea And Vomiting Umeclidinium- Vilanterol [Anoro Ellipta] 62.5-25 Mcg Inhaler 1 dose INH QDAY [facility] Last Admin: 05/22/21 08:00 Dose: Not Given Documented by: Polyethylene Glycol (Polyethylene Glycol 3350 17 Gm Packet) 17 gm PO QDAY [facility] Last Admin: 05/22/21 07:59 Dose: 17 gm Documented by: Senna (Sennosides 1 Tablet) 2 tab PO [facility] Last Admin: 05/21/21 20:49 Dose: 2 tab Documented by: Simvastatin (Simvastatin 40 Mg Tablet) 40 mg PO [facility] Last Admin: 05/21/21 20:49 Dose: 40 mg Documented by: Sodium Chloride (0.9 % Sodium Chloride 10 Ml Syringe) 10 ml IV Q8 [facility] Last Admin: 05/22/21 13:03 Dose: Not Given Documented by: Tamsulosin HCl (Tamsulosin 0.4 Mg Capsule) 0.4 mg PO QDAY [facility] Last Admin: 05/22/21 07:59 Dose: 0.4 mg Documented by: Tramadol HCl (Tramadol 50 Mg Tablet) 50 mg PO Q4-6HP PRN; Protocol PRN Reason: Pain A/P Narrative A/P Narrative: A: *Weight loss, failure to thrive: Unclear etiology -CT c/a/p to r/o occult malignancy shows no masses or other worrying findings for malignancy -Cachexia related to COPD also possible -Difficulty in cooking and providing adequate meals may be contributing -May have underlying dysphagia which also contributes *Fever: No source noted -Temperature to 101 overnight -No white count on labs -Query episode of microaspiration *Severe protein calorie malnutrition: BMI 18.4, but with no subcutaneous fat r eserves on exam -Likely contributing to his weakness *Anemia: May be related to nutritional deficiency -Hemoglobin 12.0 on 02/03 of this year, now 9.3. -Fell to 8.1 with hydration 05/21, to 7.6 on 05/22 -No evidence of GI blood loss, Brown heme-negative stool in the ED -Generally normal iron stores, B12 and folate *Esophageal achalasia and presbyesophagus: -At risk for aspiration per barium swallow -May also be contributing to his poor caloric intake *Type 2 diabetes mellitus: On Metformin and glimepiride at home *COPD (Significant COPD changes on CT): On Anoro and albuterol as needed *Anxiety: on diazepam and buspirone *HTN: on ACEI *GERD: Plan: decrease prn diazepam Follow-up blood cultures If further fever, consider reimaging (though initial x-ray and CT chest before fever were negative) Continue nutritional support/dietitian consult Continue to monitor for evidence of refeeding syndrome Speech therapy evaluation Continue to hold metformin and glimepiride, treat with sliding scale insulin Continue Anoro, as needed DuoNeb Continue with PT and OT evaluations to assess functional status and possible discharge needs Continue to follow hemoglobin, though there remains a lower suspicion for GI bleed with brown heme-negative stool in the ED May require transfusion if continued to fall -ppx: lovenox/home ppi Time Spent With Patient Time: Total time spent is greater than 50% in coordination of care (as documented) at patient's floor/unit and/or counseling patient: QUALITY VTE Deep Vein Thrombosis/Pulmonary Embolism Present on Admission: No
[2021-05-22] MEDS: SIMVASTATIN 40 MG TABLET PO SCH (21:09)
[2021-05-22] MEDS: busPIRone 5 MG TABLET PO SCH (21:09)
[2021-05-22] MEDS: MIRTAZAPINE 15 MG TABLET PO SCH (21:09)
[2021-05-22] MEDS: SENNOSIDES 1 TABLET PO SCH (21:16)
[2021-05-23] MEDS: 0.9 % SODIUM CHLORIDE 10 ML SYRINGE IV SCH ×4 (00:39→20:53)
--- NOTE | 2021-05-23 07:21 | Internal Med Progress Note ---
SUBJECTIVE Subjective Patient information: Note initiated : 05/23/21 at 7:17 am Service Date, if different from initiated Date: [] Patient: Seymour Gomez 80 y/o M admitted on 05/20/21 for weakness. Chief Complaint: [] Interval history: Mr. Gomez is a 80 year old M with a history of type 2 diabetes, COPD, BPH who presents to the emergency department with weakness. History is obtained in speaking to the patient, as well as with the ED phys Dr. Solange charles. Patient states that he is lost about 40 pounds in about the last year and a uriah f. He states he got sick with the flu at the end of September 2019 was essentially bedbound for about a month. He had poor appetite during that time. He cooks for himself and really was not eating much. Following that he never gained back weight. He became ill again with respiratory illness in 08/2020 and again had further weight loss. He now weighs 110 pounds. Since that time he is continued to have what sounds like a progressive decline in functional status. For the last 4 days he states he has been too weak to get out of bed. It sounds like he has not eaten much during those 4 days. Prior to that he was able to get up to the bathroom. He is cooks for himself, but does not have much energy to cook. This is been particularly exacerbated by hot weather. Generally has a TV dinner or soup or sandwich. He eats 1 or maybe 2 meals a day. He has a niece who checks in on him. She has had concerns with his declining health. He was seen by his PCP a couple weeks ago. On day of admission he called his niece as he is unable to get up out of bed to even transfer to try to get to the bathroom. In the emergency department, evaluation revealed an anemia at 9.3 (12.04/17), but had brown heme-negative stool on exam. Renal function is normal at 0.9, potassium very mildly elevated 5.2. Normal liver enzymes. Chest film revealed changes consistent with COPD and some suggestion of vascular congestion. Troponin was less than 0.01. Given the patient's weakness and failure to be able to live alone, he is hospitalized observation for further evaluation. 8/2had a temperature to 101 over night, blood cultures drawn. Patient has been very sleepy today. Was not able to work with speech therapy. Was noted to possibly have aspiration yesterday evening. Home meds reordered, which included 3 times a day Valium. Patient was vague on how he been taking his meds yesterday when I admitted him. Very difficult to arouse and unable to provide history today. 8/3patient is up sitting in chair, eating breakfast. Much more alert today. Still quite weak. Provides history that he was using one half of a diazepam daily, (prescription was 10 mg 3 times daily), though had used a whole tablet for the few days leading up to his hospitalization. Only takes 1 buspirone per day, not 3. Awaiting formal speech therapy evaluation. 05/23 No overnight event or new complaints. Patient states he uses oxygen at home 2 L. Review of Systems: denies headache/fever/chills/nausea/vomiting/chest or abdominal pain/cough/dyspnea/diarrhea. Otherwise see above. Constitutional Vitals: Vital Signs Temp Pulse Resp BP Pulse Ox 98.1 F 65 18 150/76 98 05/23/21 03:57 05/23/21 03:57 05/23/21 03:57 05/23/21 03:57 05/23/21 03:57 Period Temp Pulse Resp BP Sys/Pérez Pulse Ox Last 24 Hr 98.1 F-98.8 F 61-71 18-26 132-171/67-79 96-100 Intake and Output 05/22/21 05/23/21 05/23/21 21:59 05:59 13:59 Intake Total 1480 1200 Output Total 902 450 Balance 578 750 Weight 52.707 kg Intake & Output: Intake & Output 05/22/21 05/23/21 05/23/21 21:59 05:59 13:59 Intake Total 1480 1200 Output Total 902 450 Balance 578 750 Weight 52.707 kg Intake: Nourishment/Supplement quantity 440 (ml) IV 1000 Sodium Chloride 0.9% 1,000 ml @ 1000 75 mls/hr IV .[id number] JAMES Rx#: [id number] Oral 1040 200 Output: Void Amount 900 450 # of times incontinent of urine 2 Other: Meal Lunch Percent of Meal Consumed 75% Feeding Ability Needs Supervision Urine Appearance Clear Urine Color Bright Yellow Urine Odor Normal Stool Size Moderate Stool Color Brown Stool Consistency Liquid Loose # Voids 1 1 # Bowel Movements 1 # of times incontinent of 1 Bowels Exam: General: Alert, Awake, No acute Distress, cachectic Eyes/N/T: EOMI, Head/Neck: neck supple, CV: RRR, No murmurs, Pulm: Diminished b/l, no wheezing/rhonchi/rales Abd: soft, nontender, +BS x4 Ext: no clubbing/cyanosis/edema Neuro: Alert, no focal deficits, moves all extremities, Skin: warm/dry OBJ DATA Labs CBC & Chem 7: 05/23/21 06:04 05/23/21 06:14 Labs: Abnormal Lab Results 05/22/21 05/22/21 05/22/21 07:40 07:40 05:27 WBC RBC Hgb Hct MCHC RDW Neut % (Auto) Lymph % (Auto) [place] % (Auto) Lymph # (Auto) Potassium Chloride 109 H Anion Gap 6.0 L BUN 25 H Creatinine Glucose Calcium 8.4 L TIBC 145 L Unsat Iron Binding 84 L Albumin 2.8 L Vitamin B12 1915.0 H Folate > 20.0 H Urine Mucus 05/22/21 05/21/21 05/21/21 05:27 05:35 05:35 WBC 4.3 L RBC 2.75 L 2.99 L Hgb 7.6 L 8.1 L Hct 25.8 L 28.6 L MCHC 29.5 L 28.3 L RDW 15.5 H 15.5 H Neut % (Auto) 84.3 H Lymph % (Auto) 9.0 L [place] % (Auto) 12.1 H Lymph # (Auto) 0.87 L 0.84 L Potassium Chloride Anion Gap 6.0 L BUN 25 H Creatinine 1.3 H Glucose 41 L Calcium TIBC Unsat Iron Binding Albumin Vitamin B12 Folate Urine Mucus 05/20/21 05/20/21 05/20/21 16:08 11:06 11:06 WBC RBC 3.30 L Hgb 9.3 L Hct 31.1 L MCHC 29.9 L RDW 15.3 H Neut % (Auto) Lymph % (Auto) [place] % (Auto) 12.6 H Lymph # (Auto) 0.98 L Potassium 5.2 H Chloride Anion Gap BUN 26 H Creatinine Glucose 157 H Calcium TIBC Unsat Iron Binding Albumin Vitamin B12 Folate Urine Mucus Few A Meds: Medications Acetaminophen (Acetaminophen 325 Mg Tablet) 650 mg PO Q6HP PRN; Protocol PRN Reason: Per Pain Protocol/Fever > 101 Last Admin: 05/20/21 19:21 Dose: 650 mg Documented by: Albuterol/Ipratropium (Ipratropium/Albuterol 3 Ml Ampul.Neb) 3 ml NEB Q6HP PRN PRN Reason: Wheezing Last Admin: 05/21/21 11:49 Dose: 3 ml Documented by: Buspirone HCl (Buspirone 5 Mg Tablet) 20 mg PO HS [facility] Last Admin: 05/22/21 21:09 Dose: 20 mg Documented by: Dextrose (Dextrose 50% 50 Ml Vial) 0 ml IV UD PRN PRN Reason: Hypoglycemia Diagnostic Test (Pha) (Accu-Chek 1 Each Strip) 1 each FS [facility] Last Admin: 05/22/21 21:13 Dose: 1 each Documented by: Diazepam (Diazepam 2 Mg Tablet) 2 mg PO BIDP PRN PRN Reason: Anxiety Docusate Sodium (Docusate Sodium 100 Mg Capsule) 100 mg PO TID [facility] Last Admin: 05/22/21 21:16 Dose: Not Given Documented by: Enoxaparin Sodium (Enoxaparin 40 Mg/0.4 Ml Syringe) 40 mg SQ DAILY [facility] Last Admin: 05/22/21 08:00 Dose: 40 mg Documented by: Finasteride (Finasteride 5 Mg Tablet) 5 mg PO QDAY [facility] Last Admin: 05/22/21 08:00 Dose: 5 mg Documented by: Glucose (Dextrose 31 Gm Oral.Susp) 15 gm PO PRN PRN PRN Reason: Hypoglycemia Acetaminophen (Ofirmev) 650 mg in 65 mls @ 130 mls/hr IV Q6HP PRN; Protocol PRN Reason: PAIN/FEVER > 101 Last Infusion: 05/21/21 05:33 Dose: Infused Documented by: Insulin Human Lispro (Insulin Lispro 1 Unit/0.01 Ml Unit) 0 unit SQ [facility]; Protocol Last Admin: 05/22/21 21:16 Dose: Not Given Documented by: Lisinopril (Lisinopril 10 Mg Tablet) 10 mg PO DAILY [facility] Last Admin: 05/22/21 08:00 Dose: 10 mg Documented by: Mirtazapine (Mirtazapine 15 Mg Tablet) 15 mg PO [facility] Last Admin: 05/22/21 21:09 Dose: 15 mg Documented by: Omeprazole (Omeprazole 20 Mg Capsule) 40 mg PO BIDAC [facility] Last Admin: 05/22/21 16:39 Dose: 40 mg Documented by: Ondansetron HCl (Ondansetron 4 Mg/2 Ml Vial) 4 mg IV Q6HP PRN PRN Reason: Nausea And Vomiting Last Admin: 05/20/21 21:41 Dose: 4 mg Documented by: Ondansetron HCl (Ondansetron 4 Mg Odt Tablet) 4 mg SL Q6HP PRN PRN Reason: Nausea And Vomiting Umeclidinium- Vilanterol [Anoro Ellipta] 62.5-25 Mcg Inhaler 1 dose INH QDAY [facility] Last Admin: 05/22/21 08:00 Dose: Not Given Documented by: Polyethylene Glycol (Polyethylene Glycol 3350 17 Gm Packet) 17 gm PO QDAY [facility] Last Admin: 05/22/21 07:59 Dose: 17 gm Documented by: Senna (Sennosides 1 Tablet) 2 tab PO [facility] Last Admin: 05/22/21 21:16 Dose: Not Given Documented by: Simvastatin (Simvastatin 40 Mg Tablet) 40 mg PO [facility] Last Admin: 05/22/21 21:09 Dose: 40 mg Documented by: Sodium Chloride (0.9 % Sodium Chloride 10 Ml Syringe) 10 ml IV Q8 [facility] Last Admin: 05/23/21 00:39 Dose: 10 ml Documented by: Tamsulosin HCl (Tamsulosin 0.4 Mg Capsule) 0.4 mg PO QDAY [facility] Last Admin: 05/22/21 07:59 Dose: 0.4 mg Documented by: Tramadol HCl (Tramadol 50 Mg Tablet) 50 mg PO Q4-6HP PRN; Protocol PRN Reason: Pain A/P Narrative A/P Narrative: A: *Weight loss, failure to thrive: Unclear etiology -CT c/a/p to r/o occult malignancy shows no masses or other worrying findings for malignancy -Cachexia related to COPD also possible -Difficulty in cooking and providing adequate meals may be contributing -May have underlying dysphagia which also contributes *Fever: No source noted -afebrile since early on 05/21 -No white count on labs -Query episode of microaspiration *Severe protein calorie malnutrition: BMI 18.4, but with no subcutaneous fat reserves on exam -Likely contributing to his weakness *Anemia: May be related to nutritional deficiency -Hemoglobin 12.0 on 02/03 of this year, now 9.3. -Fell to 8.1 with hydration 05/21, then 7.6>8.1 -No evidence of GI blood loss, Brown heme-negative stool in the ED -Generally normal iron stores, B12 and folate *Esophageal achalasia and presbyesophagus: -At risk for aspiration per barium swallow -May also be contributing to his poor caloric intake *mild-mod Oropharyngeal Dysphagia: *Type 2 diabetes mellitus: On Metformin and glimepiride at home *COPD (Significant COPD changes on CT): On Anoro and albuterol as needed *Anxiety: on diazepam and buspirone *HTN: on ACEI *GERD: *?hypoxia: Plan: decrease prn diazepam Follow-up blood cultures If further fever, consider reimaging (though initial x-ray and CT chest before fever were negative) Continue nutritional support/dietitian consult Continue to monitor for evidence of refeeding syndrome Speech therapy evaluation, diet per ST level 6 Continue to hold metformin and glimepiride, treat with sliding scale insulin Continue Anoro, as needed DuoNeb Continue with PT and OT evaluations to assess functional status and possible discharge needs Continue to follow hemoglobin, though there remains a lower suspicion for GI bleed with brown heme-negative stool in the ED May require transfusion if continued to fall -ppx: lovenox/home ppi Time Spent With Patient Time: Total time spent is greater than 50% in coordination of care (as brandon naik) at patient's floor/unit and/or counseling patient: QUALITY VTE Deep Vein Thrombosis/Pulmonary Embolism Present on Admission: No
[2021-05-23 07:26] LABS: Basophils # (Auto) 0.07 K/mcL (0.00-0.20); Basophils % (Auto) 1.5 % (0.0-2.0); Eosinophils # (Auto) 0.06 K/mcL (0.00-0.70); Eosinophils % (Auto) 1.3 % (0.0-7.0); Hematocrit 27.2 % (41.0-55.0); Hemoglobin 8.1 g/dL (13.5-16.5); Lymphocytes % (Auto) 26.2 % (15.0-49.0); Mean Cell Volume 92.5 fL (80.0-100.0); Mean Corpuscular HGB Conc 29.8 g/dL (31.0-36.0); Mean Platelet Volume 9.5 fL (7.4-10.4); Monocytes # (Auto) 0.51 K/mcL (0.10-0.90); Monocytes % (Auto) 11.1 % (1.0-12.0); Neutrophils % (Auto) 59.9 % (38.0-78.0); Platelet Count 256 K/mcL (140-440); RBC 2.94 M/mcL (4.50-5.90); Red Cell Distribution Width 15.1 % (11.5-14.5); WBC 4.6 K/mcL (4.5-11.0)
[2021-05-23] MEDS: OMEPRAZOLE 20 MG CAPSULE PO SCH ×2 (07:44→16:37)
[2021-05-23 07:47] LABS: ALT/SGPT 16 U/L (<40); AST/SGOT 24 U/L (<40); Albumin 3.1 gm/dL (3.2-5.2); Albumin/Globulin Ratio 1.1 (1.0-2.3); Alkaline Phosphatase 72 U/L (39-117); Bilirubin,Direct < 0.2 mg/dL (0-0.3); Bilirubin,Total 0.2 mg/dL (0.1-1.0); Blood Urea Nitrogen 19 mg/dL (8-23); Calcium 8.5 mg/dL (8.6-10.4); Carbon Dioxide 29 mmol/L (22-30); Chloride 108 mmol/L (96-108); Globulin 2.8 gm/dL (2.2-3.7); Glomerular Filtration Rate 83; Glucose 120 mg/dL (70-105); Lactate Dehydrogenase 189 U/L (135-225); Phosphorous 2.4 mg/dL (2.5-4.5); Triglycerides 83 mg/dL (<150); Uric Acid 4.6 mg/dL (2.5-8.0)
[2021-05-23] MEDS: INSULIN LISPRO 1 UNIT/0.01 ML UNIT SQ SCH ×4 (07:47→20:53)
--- NOTE | 2021-05-23 07:58 | XRay Report ---
INDICATION: Follow-up abnormal film TECHNIQUE: AP portable semiupright chest x-ray COMPARISON: None FINDINGS: Lungs:No pulmonary parenchymal consolidation or mass. No new abnormality Heart, vascular:Heart size is within normal limits and stable. Vascularity is mildly prominent. There is interlobular septal thickening at the lung bases which may represent mild interstitial pulmonary edema. Overall appearance is stable. Mediastinum, josselyn:No mediastinal widening. No hilar mass Pleura:No pleural fluid. No pleural-based mass or calcification Skeletal:Negative. IMPRESSION: 1. Probable mild interstitial edema, unchanged 2. No new or focal abnormality Interpreted and Authenticated by: Alber Marshall 05/23/21
[2021-05-23] MEDS ORDERED: NEUTRA PHOS 1 PACKET PO ONE (08:11)
[2021-05-23] MEDS: ENOXAPARIN 40 MG/0.4 ML SYRINGE SQ SCH (09:09)
[2021-05-23] MEDS: LISINOPRIL 10 MG TABLET PO SCH (09:09)
[2021-05-23] MEDS: DOCUSATE SODIUM 100 MG CAPSULE PO SCH ×3 (09:09→20:40)
[2021-05-23] MEDS: FINASTERIDE 5 MG TABLET PO SCH (09:09)
[2021-05-23] MEDS: Umeclidinium-Vilanterol [Anoro Ellipta] 62.5-25 mcg Inhaler INH SCH (09:09)
[2021-05-23] MEDS: TAMSULOSIN 0.4 MG CAPSULE PO SCH (09:09)
[2021-05-23] MEDS: POLYETHYLENE GLYCOL 3350 17 GM PACKET PO SCH (09:09)
--- NOTE | 2021-05-23 10:02 | Discharge Summary ---
Discharge Provider Provider Patient information: Note initiated : 05/23/21 at 9:59 am Service Date, if different from initiated Date: [] Patient: Seymour Gomez 80 y/o M admitted on 05/20/21 for weakness. Chief Complaint: [] Date of admission: 05/20/21 15:30 Discharge date: 05/24/21 Primary care physician: Jordon Condon Consults: 05/20/21 Consult to Physician [CONS] Stat Comment: Consulting Provider: Yara Newsome Reason For Exam: Physician to Consult Discharge Meds Discharge Medications Home Medications albuterol sulfate 90 mcg/actuation aerosol inhaler See Rx Instructions .ROUTE .COMPLEX g 06/15/15 [History Confirmed 05/20/21 Last Taken Unknown] buspirone 10 mg tablet 20 mg PO TID tab 06/15/15 [History Confirmed 05/20/21 Last Taken Unknown] docusate sodium 100 mg capsule 100 mg PO TID cap 06/15/15 [History Confirmed 05/20/21 Last Taken Unknown] finasteride 5 mg tablet 5 mg PO QDAY tab 06/15/15 [History Confirmed 05/20/21 Last Taken Unknown] lovastatin 40 mg tablet 80 mg PO HS tab 06/15/15 [History Confirmed 05/20/21 Last Taken Unknown] metformin 500 mg tablet 500 mg PO BID tab 06/15/15 [History Confirmed 05/20/21 Last Taken Unknown] tamsulosin 0.4 mg capsule 0.4 mg PO QDAY cap 06/15/15 [History Confirmed 05/20/21 Last Taken Unknown] tramadol 50 mg tablet See Rx Instructions .ROUTE .COMPLEX PRN tab 06/15/15 [History Confirmed 05/20/21 Last Taken Unknown] Anoro Ellipta 1 inh INHALATION QDAY 05/20/21 [History Confirmed 05/20/21 Last Taken Unknown] acetaminophen See Rx Instructions .ROUTE .COMPLEX 05/20/21 [History Confirmed 05/20/21 Last Taken Unknown] enalapril maleate 10 mg PO QDAY 05/20/21 [History Confirmed 05/20/21 Last Taken Unknown] glimepiride 4 mg PO BID 05/20/21 [History Confirmed 05/20/21 Last Taken Unknown] hydroxyzine HCl 10 mg PO TID 05/20/21 [History Confirmed 05/20/21 Last Taken Unknown] omeprazole 40 mg PO BID 05/20/21 [History Confirmed 05/20/21 Last Taken Unknown] polyethylene glycol 3350 17 g PO QDAY 05/20/21 [History Confirmed 05/20/21 Last Taken Unknown] diazepam 2 mg PO TID PRN #20 tab 05/23/21 [Rx Last Taken Unknown] COURSE Hospital Course Hospital course: Interval history: Mr. Gomez is a 80 year old M with a history of type 2 diabetes, COPD, BPH who presents to the emergency department with weakness. History is obtained in speaking to the patient, as well as with the ED physician, Dr. Narvaez. Patient states that he is lost about 40 pounds in about the last year and a half. He states he got sick with the flu at the end of September 2019 was essentially bedbound for about a month. He had poor appetite during that time. He cooks for himself and really was not eating much. Following that he never gained back weight. He became ill again with respiratory illness in 08/2020 and again had further weight loss. He now weighs 110 pounds. Since that time he is continued to have what sounds like a progressive decline in functional status. For the last 4 days he states he has been too weak to get out of bed. It sounds like he has not eaten much during those 4 days. Prior to that he was able to get up to the bathroom. He is cooks for himself, but does not have much energy to cook. This is been particularly exacerbated by hot weather. Generally has a TV dinner or soup or sandwich. He eats 1 or maybe 2 meals a day. He has a niece who checks in on him. She has had concerns with his declining health. He was seen by his PCP a couple weeks ago. On day of admission he called his niece as he is unable to get up out of bed to even transfer to try to get to the bathroom. In the emergency department, evaluation revealed an anemia at 9.3 (.02/03), but had brown heme-negative stool on exam. Renal function is normal at 0.9, potassium very mildly elevated 5.2. Normal liver enzymes. Chest film revealed changes consistent with COPD and some suggestion of vascular congestion. Troponin was less than 0.01. Given the patient's weakness and failure to be able to live alone, he is hospitalized observation for further evaluation. ad a temperature to 101 over night, blood cultures drawn. Patient has been very sleepy today. Was not able to work with speech therapy. Was noted to possibly have aspiration yesterday evening. Home meds reordered, which included 3 times a day Valium. Patient was vague on how he been taking his meds yesterday when I admitted him. Very difficult to arouse and unable to provide history today. atient is up sitting in chair, eating breakfast. Much more alert today. Still quite weak. Provides history that he was using one half of a diazepam daily, (prescription was 10 mg 3 times daily), though had used a whole tablet for the few days leading up to his hospitalization. Only takes 1 buspirone per day, not 3. Awaiting formal speech therapy evaluation. 05/23 No overnight event or new complaints. Patient states he uses oxygen at home 2 L. 05/24 No changes. Hemoglobin stable. Patient requiring less oxygen at home regimen. *Given age and comorbidities patient high risk for readmission A/P Narrative: *Weight loss, failure to thrive: Unclear etiology -CT c/a/p to r/o occult malignancy shows no masses or other worrying findings for malignancy -Cachexia related to COPD also possible -Difficulty in cooking and providing adequate meals may be contributing -underlying dysphagia which also contributes *Fever: No source noted -afebrile since early on 05/21 -No white count on labs -Query episode of microaspiration *Severe protein calorie malnutrition: BMI 18.4, but with no subcutaneous fat reserves on exam -Likely contributing to his weakness *Anemia: May be related to nutritional deficiency -Hemoglobin 12.0 on 02/03 of this year, now 9.3. -Fell to 8.1 with hydration 05/21, then 7.6>8.1 -No evidence of GI blood loss, Brown heme-negative stool in the ED -Generally normal iron stores, B12 and folate *Esophageal achalasia and presbyesophagus: -At risk for aspiration per barium swallow -May also be contributing to his poor caloric intake *mild-mod Oropharyngeal Dysphagia: *Type 2 diabetes mellitus: On Metformin and glimepiride at home *COPD (on 2L NC @home): On Anoro and albuterol as needed *Anxiety: on diazepam and buspirone *HTN: on ACEI *GERD: Discharge diagnosis: Failure to thrive protein calorie malnutrition anemia achalasia dysphagia Secondary discharge diagnosis: Presbyesophagus fever COPD diabetes anxiety hypertension Time Spent with Patient Time attestation: Total time spent providing and/or coordinating discharge services: Time spent: Greater than 30 minutes EXAM Constitutional Vitals: Temp Pulse Resp BP Pulse Ox 99.0 F 66 26 H 153/73 98 05/23/21 08:00 05/23/21 08:00 05/23/21 08:00 05/23/21 08:00 05/23/21 08:00 Discharge Data Data Completed and Pending Labs on day of discharge: Labs from last 24 hours 05/23/21 05/23/21 06:14 06:04 WBC 4.6 RBC 2.94 L Hgb 8.1 L Hct 27.2 L MCV 92.5 MCH 27.6 MCHC 29.8 L RDW 15.1 H Plt Count 256 MPV 9.5 Neut % (Auto) 59.9 Lymph % (Auto) 26.2 [place] % (Auto) 11.1 Eos % (Auto) 1.3 Baso % (Auto) 1.5 Lymph # (Auto) 1.20 L [place] # (Auto) 0.51 Eos # (Auto) 0.06 Baso # (Auto) 0.07 Absolute Neutrophils 2.74 Sodium 143 Potassium 4.3 Chloride 108 Carbon Dioxide 29 Anion Gap 6.0 L BUN 19 Creatinine 0.8 GFR Calculation 83 Glucose 120 H Uric Acid 4.6 Calcium 8.5 L Phosphorus 2.4 L Magnesium 1.9 Total Bilirubin 0.2 Direct Bilirubin < 0.2 GGT 29 AST 24 ALT 16 Alkaline Phosphatase 72 Lactate Dehydrogenase 189 Total Protein 5.9 Albumin 3.1 L Globulin 2.8 Albumin/Globulin Ratio 1.1 Triglycerides 83 Preliminary micro results at discharge 05/21/21 05:49 Blood Culture - Preliminary Blood 05/21/21 05:35 Blood Culture - Preliminary Blood Discharge Plan Patient/Caregiver Discharge Instructions Activity: increase activity as tolerated Diet: Dysphagia Level 6 Soft & Bite-Sized Foods Activity Restrictions/Additional Instructions: additional diet order: thin liquids, glucerna 8oz tid. Prescriptions: New diazepam 2 mg tablet 2 mg PO TID PRN (Reason: anxiety) Qty: 20 RF: 0 Continued metformin 500 mg tablet 500 mg PO BID RF: 0 lovastatin 40 mg tablet 80 mg PO HS RF: 0 tramadol 50 mg tablet See Rx Instructions .ROUTE .COMPLEX PRN (Reason: Pain) RF: 0 tamsulosin 0.4 mg capsule,extended release 24hr 0.4 mg PO QDAY RF: 0 buspirone 10 mg tablet 20 mg PO TID RF: 0 docusate sodium 100 mg capsule 100 mg PO TID RF: 0 albuterol sulfate 90 mcg/actuation HFA aerosol inhaler See Rx Instructions .ROUTE .COMPLEX RF: 0 finasteride 5 mg tablet 5 mg PO QDAY RF: 0 enalapril maleate 10 mg Tablet 10 mg PO QDAY RF: 0 glimepiride 4 mg Tablet 4 mg PO BID RF: 0 polyethylene glycol 3350 17 gram Powder In Packet 17 g PO QDAY RF: 0 omeprazole 40 mg Capsule,Delayed Release(Dr/Ec) 40 mg PO BID RF: 0 Anoro Ellipta 62.5-25 mcg/actuation Blister With Device 1 inh INHALATION QDAY RF: 0 acetaminophen 325 mg Tablet See Rx Instructions .ROUTE .COMPLEX RF: 0 hydroxyzine HCl 10 mg Tablet 10 mg PO TID RF: 0 Discontinued diazepam 5 mg Tablet 5 mg PO TID RF: 0 Follow Up Plan Follow up with: Jordon Condon MD [Primary Care Provider] - Patient Disposition: Xfer SNF Prognosis: Undetermined Rehab Potential: Fair I certify that the patient requires SNF services: Yes Overall status at discharge: patient is progressing back to baseline Discharge Orders: Discharge Order (Routine); Ordered 05/24/21 [facility] Deep [facility]in Thrombosis/Pulmonary Embolism Present on Admission: No
[2021-05-23] MEDS ORDERED: FUROSEMIDE 20 MG/2 ML VIAL IV ONE (10:05)
[2021-05-23] MEDS ORDERED: PHOSPHORUS 250 MG TABLET PO ONE (12:30)
[2021-05-23] MEDS: hydrALAZINE 20 MG/ML VIAL IV PRN ×2 (19:54→23:17)
[2021-05-23] MEDS: busPIRone 5 MG TABLET PO SCH (20:39)
[2021-05-23] MEDS: MIRTAZAPINE 15 MG TABLET PO SCH (20:39)
[2021-05-23] MEDS: SENNOSIDES 1 TABLET PO SCH ×2 (20:39→20:42)
[2021-05-23] MEDS: DIAZEPAM 2 MG TABLET PO PRN (20:39)
[2021-05-23] MEDS: SIMVASTATIN 40 MG TABLET PO SCH (20:40)
[2021-05-24] MEDS: OMEPRAZOLE 20 MG CAPSULE PO SCH ×2 (08:03→16:42)
[2021-05-24] MEDS: INSULIN LISPRO 1 UNIT/0.01 ML UNIT SQ SCH ×4 (08:03→20:24)
[2021-05-24] MEDS: 0.9 % SODIUM CHLORIDE 10 ML SYRINGE IV SCH ×3 (08:04→20:24)
[2021-05-24] MEDS: TAMSULOSIN 0.4 MG CAPSULE PO SCH (08:47)
[2021-05-24] MEDS: LISINOPRIL 10 MG TABLET PO SCH (08:47)
[2021-05-24] MEDS: FINASTERIDE 5 MG TABLET PO SCH (08:47)
[2021-05-24] MEDS: ENOXAPARIN 40 MG/0.4 ML SYRINGE SQ SCH (08:51)
[2021-05-24] MEDS: DIAZEPAM 2 MG TABLET PO PRN ×2 (08:51→16:04)
[2021-05-24] MEDS: DOCUSATE SODIUM 100 MG CAPSULE PO SCH ×3 (08:52→20:19)
[2021-05-24] MEDS: POLYETHYLENE GLYCOL 3350 17 GM PACKET PO SCH (08:52)
[2021-05-24] MEDS: Umeclidinium-Vilanterol [Anoro Ellipta] 62.5-25 mcg Inhaler INH SCH (08:52)
[2021-05-24] MEDS: hydrALAZINE 20 MG/ML VIAL IV PRN ×2 (08:57→16:04)
[2021-05-24 12:45] LABS: Hematocrit 28.9 % (41.0-55.0); Hemoglobin 8.7 g/dL (13.5-16.5)
[2021-05-24] MEDS: ONDANSETRON 4 MG/2 ML VIAL IV PRN (18:19)
[2021-05-24] MEDS: SENNOSIDES 1 TABLET PO SCH (20:19)
[2021-05-24] MEDS: busPIRone 5 MG TABLET PO SCH (20:25)
[2021-05-24] MEDS: MIRTAZAPINE 15 MG TABLET PO SCH (20:25)
[2021-05-24] MEDS: SIMVASTATIN 40 MG TABLET PO SCH (20:25)
[2021-05-25] MEDS: DIAZEPAM 2 MG TABLET PO PRN ×2 (01:33→09:18)
[2021-05-25] MEDS: 0.9 % SODIUM CHLORIDE 10 ML SYRINGE IV SCH (05:59)
[2021-05-25] MEDS: ENOXAPARIN 40 MG/0.4 ML SYRINGE SQ SCH (09:15)
[2021-05-25] MEDS: TAMSULOSIN 0.4 MG CAPSULE PO SCH (09:17)
[2021-05-25] MEDS: POLYETHYLENE GLYCOL 3350 17 GM PACKET PO SCH (09:17)
[2021-05-25] MEDS: OMEPRAZOLE 20 MG CAPSULE PO SCH (09:18)
[2021-05-25] MEDS: DOCUSATE SODIUM 100 MG CAPSULE PO SCH (09:18)
[2021-05-25] MEDS: FINASTERIDE 5 MG TABLET PO SCH (09:18)
[2021-05-25] MEDS: Umeclidinium-Vilanterol [Anoro Ellipta] 62.5-25 mcg Inhaler INH SCH (09:18)
[2021-05-25] MEDS: LISINOPRIL 10 MG TABLET PO SCH (09:18)
[2021-05-25] MEDS: INSULIN LISPRO 1 UNIT/0.01 ML UNIT SQ SCH (09:18)
[2021-05-25] MEDS ORDERED: PNEUMOCOCCAL 23-VAL P-SAC VAC 0.5 ML SYRINGE IM ONE (10:00)
== END 2021-05-25 10:15 | DRG 640 ==
LOC: MEDSUR 10:51 → ED 10:51 → OBSVTOIN 15:30 → MEDSUR 05-21 11:29
PROVIDERS: ADMIT Internal Medicine; ATTEND Internal Medicine